=== PATIENT | female | born 1955 | race Caucasian/White ===

== ENCOUNTER 2018-12-28 22:20 | Inpatient (IN) ==
[2018-12-28] MEDS ORDERED: 0.9 % Sodium Chloride 500 ML IVC ONE (22:34)
[2018-12-28 23:07] LABS: Basophils % 0.5 %; Eosinophils % 0.8 %; Hematocrit 29.4 % (35.3-44.9); Hemoglobin 10.6 g/dL (11.5-15.4); Immature Granulocytes % 0.3 % (0-4); Lymphocytes # 0.5 K/mcL (0.6-4.6); Lymphocytes % 14.2 %; Mean Corpuscular HGB Conc 36.1 g/dL (31.6-35.5); Mean Corpuscular Hemoglobin 31.5 pg (28.0-33.3); Mean Corpuscular Volume 87.2 fL (83.0-100.0); Mean Platelet Volume 8.1 fL (9.4-12.4); Monocytes # 0.6 K/mcL (0.0-1.3); Monocytes % 16.9 %; Neutrophils # 2.5 K/mcL (1.6-8.9); Platelet Count 281 K/mcL (140-400); Red Blood Count 3.37 M/mcL (3.82-4.97); Red Cell Distribution Width 17.2 % (11.5-14.5); Segmented Neutrophils % 67.3 %
[2018-12-28 23:28] LABS: Alanine Aminotransferase 8 Units/L (7-52); Albumin 3.3 g/dL (3.5-5.7); Albumin/Globulin Ratio 1.2 (1.1-2.2); Alkaline Phosphatase 79 Units/L (34-104); Aspartate Amino Transferase 15 Units/L (13-39); BUN/Creatinine Ratio 19 (6-26); Bilirubin,Direct 0.3 mg/dL (0.0-0.2); Bilirubin,Indirect 0.8 mg/dL (0.0-1.2); Bilirubin,Total 1.1 mg/dL (0.3-1.0); Blood Urea Nitrogen 6 mg/dL (8-23); Calcium 8.6 mg/dL (8.6-10.3); Carbon Dioxide 19 mEq/L (23-29); Chloride 91 mEq/L (98-107); Globulin 2.7 g/dL (2.4-3.5); Glucose 87 mg/dL (70-105); Magnesium 1.3 mg/dL (1.6-2.6); Osmolality,Calculated 251 (280-300); Phosphorous 2.5 mg/dL (2.7-4.5); Potassium 2.8 mEq/L (3.5-5.1); Sodium 122 mEq/L (136-145); eGFR For Non-African Americans > 60 (> 60)
[2018-12-29 00:42] LABS: Troponin I < 0.03 ng/mL (< 0.04)
--- NOTE | 2018-12-29 00:42 | Emergency Department Note ---
Disposition Clinical Impression: Hyponatremia Altered mental status Qualifiers: Altered mental status type: transient alteration of awareness Qualified Code(s): R40.4 - Transient alteration of awareness Disposition: Admitted As Inpatient Condition: Fair Time of Disposition: 04:21 General Adult HPI - General Chief complaint: ED Altered Mental Status Stated complaint: General sickness Time Seen by Provider: 12/28/18 22:31 Source: EMS Mode of arrival: EMS Limitations: altered mental status Nursing Notes Reviewed: Yes Vital Signs Reviewed: Yes - History of Present Illness HPI Narrative: Patient is a 63-year-old female with lung cancer currently undergoing chemotherapy and radiation treatments, with her last radiation treatment this past Saturday. Patient has a recent history of hyponatremia, patient gave up alcohol in September 2018. She is coming in this evening for increasing confusion, not eating or drinking, and increasing weakness with increased difficulty breathing. Daughter is at bedside state that patient begins to behave like she is now whenever her sodium is low, and they were concerned that this may be the case tonight so they brought her in to be evaluated. Patient is denying fevers or chills, chest pain, abdominal pain, nausea or vomiting, diarrhea or constipation, numbness or tingling, dizziness or lightheadedness. EMS reports patient had a fever of 101.2 Fahrenheit, but on arrival patient's temperature was 99.2 taken orally. Pain Scale: 0 - Related Data Home Medications Medication Instructions Recorded Confirmed Albuterol Sulfate [Ventolin Hfa] 2 puff IH Q6H PRN 09/10/18 12/18/18 Mirabegron [Myrbetriq] 50 mg PO DAILY 10/30/18 12/18/18 OxyCODONE/APAP 5/325 [Percocet 1 each PO Q4HR PRN 10/30/18 12/18/18 5/325 MG] Potassium Chloride [K-Tab ER] 10 meq PO BID 10/30/18 12/18/18 diazePAM [Valium] 10 mg PO ONCE PRN 10/30/18 12/18/18 Previous Rx's Medication Instructions Recorded Acetaminophen [Tylenol] 650 mg PO Q6HR PRN tablet 09/19/18 Budesonide/Formoterol 160/4.5 2 puff IH BIDR inh 09/19/18 [Symbicort 160/4.5] Folic Acid 1 mg PO DAILY tablet 09/19/18 Megestrol Acetate [Megace] 40 mg PO DAILY tablet 09/19/18 Thiamine (B-1) [Vitamin B-1] 100 mg PO DAILY tablet 09/19/18 Loperamide [Imodium] 2 mg PO AD PRN #30 capsule 11/13/18 Magic Mouthwash 5 ml PO Q4HR #240 ml 11/13/18 Ondansetron ODT [Zofran ODT] 4 mg SL Q6HR #20 tab.rapdis 11/13/18 Prochlorperazine Maleate 10 mg PO Q6HR PRN #30 tablet 11/13/18 [Compazine] Docusate Sodium [Colace] 100 mg PO BID #60 capsule 11/20/18 Lidocaine/Prilocaine [Emla] 1 appl TP AD #30 gm 11/20/18 Polyethylene Glycol 3350 [MiraLAX] 17 gm PO DAILY #30 powd.pack 11/20/18 predniSONE [Prednisone] 10 mg PO DAILY #21 tab.ds.pk 11/27/18 Sodium Chloride [Sodium Chloride 1 gm PO TID 30 Days #90 tablet 12/08/18 Tab] Demeclocycline HCl 300 mg PO BID #20 tablet 12/18/18 Allergies Allergy/AdvReac Type Severity Reaction Status Date / Time baclofen AdvReac See Verified 12/18/18 08:56 Comments morphine AdvReac Itching Verified 12/18/18 08:56 All systems ED: reviewed and negative except as stated. Constitutional: Denies: fever, chills ENT ED: Denies: throat pain Cardiovascular: Denies: chest pain, palpitations Respiratory: Reports: cough (increasing sputum production), wheezes. Denies: dyspnea Gastrointestinal: Denies: abdominal pain, nausea, vomiting, diarrhea, constipation Genitourinary: Denies: urgency, dysuria Musculoskeletal: Reports: back pain (chronic) Neurological: Denies: headache, weakness Psychiatric: Denies: anxiety, depression Endocrine: Denies: fatigue, heat or cold intolerance Hematological/Lymphatic: Denies: easy bleeding, easy bruising Allergic/Immunologic: Denies: facial swelling, urticaria Past Medical History - Past Medical History Medical history: Reports: arthritis, hypertension, other Surgical history: Reports: colectomy, herniorrhaphy Psychiatric history: Reports: anxiety, depression - Social History Smoking Status: Current every day smoker Smokeless Tobacco Status: No Alcohol use: Reports: heavy, recent Drug use: Reports: none Physical Exam - General Limitations: altered mental status General appearance: alert - Head Head exam: atraumatic, normocephalic - Eye Eye exam: Present: normal appearance, PERRL, EOMI - ENT ENT exam: mucous membranes dry - Neck Neck exam: Present: normal inspection, full ROM - Chest Chest inspection: Present: normal inspection, symmetric chest wall rise. Absent: tenderness - Respiratory Respiratory exam: Present: other (transmitted upper airway sounds, prolonged expiratory phase, diffuse wheezing) - Cardiovascular Cardiovascular exam: Present: tachycardia - Abdominal Exam Abdominal exam: Present: soft, Non-Tender - Extremities Exam Extremities exam: Present: normal inspection, full ROM - Back Exam Back exam: Present: normal inspection, full ROM - Neurological Exam Neurological exam: Present: alert, oriented X3 (pt oriented to person, place, time, president) - Psychiatric Psychiatric exam: Present: normal affect, normal mood - Skin Skin exam: Present: warm, dry, intact Course Course Narrative: Will check electrolytes, get CXR, EKG, blood cultures. Suspect pt will be admitted. Vital Signs Temperature 99.6 F 12/28/18 22:24 Pulse Rate 100 12/28/18 22:24 Respiratory Rate 18 12/28/18 22:24 Blood Pressure 116/75 12/28/18 22:24 O2 Sat by Pulse Oximetry 99 12/28/18 22:24 Temperature 99.6 F 12/28/18 22:24 Pulse Rate 103 12/29/18 01:38 Respiratory Rate 20 12/29/18 01:38 Blood Pressure 118/80 12/29/18 01:38 O2 Sat by Pulse Oximetry 98 12/29/18 01:38 Oxygen Delivery Oxygen Delivery Room Air Medical Decision Making - MDM Narrative Medical decision making narrative: Pts lab work revealed hyponatremia, hypomagnesemia, hypophosphatemia. Pt was given potassium, phosphorous, sodium while in the ED. Pt has a hx of hyponatremia, but etiology in the past was due to alcohol abuse and pt has been abstinent since Sep 2018. Pts mental status was waxing and waning while in the department and was at times A&Ox3, and at other times was only aware of self. Pt was admitted to hospitalist service through Dr. Liang, who was covering for Dr. Petersen. Pt and family at bedside verbalized understanding and agreement with the plan. Pt and family were given an opportunity to ask questions and all of their concerns were adddressed. Pt remained stable while int he department. - Medical Records Medical records reviewed: Yes I reviewed the patient's medical records. - Lab Data Lab results reviewed: Yes I reviewed the patient's lab results. Result diagrams: 12/28/18 22:52 12/28/18 22:52 Lab Results 12/28/18 12/28/18 12/28/18 Range/Units 22:52 22:52 22:52 WBC 3.7 L (4.3-11.1) K/mcL RBC 3.37 L (3.82-4.97) M/mcL Hgb 10.6 L (11.5-15.4) g/dL Hct 29.4 L (35.3-44.9) % MCV 87.2 (83.0-100.0) fL MCH 31.5 (28.0-33.3) pg MCHC 36.1 H (31.6-35.5) g/dL RDW 17.2 H (11.5-14.5) % Plt Count 281 (140-400) K/mcL MPV 8.1 L (9.4-12.4) fL Immature Gran % 0.3 (0-4) % Seg Neutrophils % 67.3 % Lymphocytes % 14.2 % Monocytes % 16.9 % Eosinophils % 0.8 % Basophils % 0.5 % Neutrophils # 2.5 (1.6-8.9) K/mcL Lymphocytes # 0.5 L (0.6-4.6) K/mcL Monocytes # 0.6 (0.0-1.3) K/mcL Eosinophils # 0.0 (0.0-0.6) K/mcL Basophils # 0.0 (0.0-0.2) K/mcL Sodium 122 L (136-145) mEq/L Potassium 2.8 L (3.5-5.1) mEq/L Chloride 91 L (98-107) mEq/L Carbon Dioxide 19 L (23-29) mEq/L BUN 6 L (8-23) mg/dL Creatinine 0.32 L (0.60-1.20) mg/dL Est GFR ( Amer) > 60 (> 60) Est GFR (Non-Af Amer) > 60 (> 60) BUN/Creatinine Ratio 19 (6-26) Glucose 87 (70-105) mg/dL Calculated Osmolality 251 L (280-300) Lactic Acid 0.8 (0.5-2.2) mmol/L Calcium 8.6 (8.6-10.3) mg/dL Phosphorus 2.5 L (2.7-4.5) mg/dL Magnesium 1.3 L (1.6-2.6) mg/dL Total Bilirubin 1.1 H (0.3-1.0) mg/dL Direct Bilirubin 0.3 H (0.0-0.2) mg/dL Indirect Bilirubin 0.8 (0.0-1.2) mg/dL AST 15 (13-39) Units/L ALT 8 (7-52) Units/L Alkaline Phosphatase 79 (34-104) Units/L Troponin I < 0.03 (< 0.04) ng/mL Serum Total Protein 6.0 L (6.4-8.9) g/dL Albumin 3.3 L (3.5-5.7) g/dL Globulin 2.7 (2.4-3.5) g/dL Albumin/Globulin Ratio 1.2 (1.1-2.2) Urine Color (Yellow) Urine Clarity (Clear) Urine pH (5.0-8.0) pH Units Ur Specific [place] (1.010-1.025) Urine Protein (Neg-Trace) mg/dL Urine Glucose (UA) (Normal) mg/dL Urine Ketones (Negative) mg/dL Urine Blood (Negative) Urine Nitrite (Negative) Urine Bilirubin (Negative) Urine Urobilinogen (Normal) mg/dL Ur Leukocyte Esterase (Negative) Ur Culture Indicated? (NO) 12/29/18 Range/Units 00:50 WBC (4.3-11.1) K/mcL RBC (3.82-4.97) M/mcL Hgb (11.5-15.4) g/dL Hct (35.3-44.9) % MCV (83.0-100.0) fL MCH (28.0-33.3) pg MCHC (31.6-35.5) g/dL RDW (11.5-14.5) % Plt Count (140-400) K/mcL MPV (9.4-12.4) fL Immature Gran % (0-4) % Seg Neutrophils % % Lymphocytes % % Monocytes % % Eosinophils % % Basophils % % Neutrophils # (1.6-8.9) K/mcL Lymphocytes # (0.6-4.6) K/mcL Monocytes # (0.0-1.3) K/mcL Eosinophils # (0.0-0.6) K/mcL Basophils # (0.0-0.2) K/mcL Sodium (136-145) mEq/L Potassium (3.5-5.1) mEq/L Chloride (98-107) mEq/L Carbon Dioxide (23-29) mEq/L BUN (8-23) mg/dL Creatinine (0.60-1.20) mg/dL Est GFR ( Amer) (> 60) Est GFR (Non-Af Amer) (> 60) BUN/Creatinine Ratio (6-26) Glucose (70-105) mg/dL Calculated Osmolality (280-300) Lactic Acid (0.5-2.2) mmol/L Calcium (8.6-10.3) mg/dL Phosphorus (2.7-4.5) mg/dL Magnesium (1.6-2.6) mg/dL Total Bilirubin (0.3-1.0) mg/dL Direct Bilirubin (0.0-0.2) mg/dL Indirect Bilirubin (0.0-1.2) mg/dL AST (13-39) Units/L ALT (7-52) Units/L Alkaline Phosphatase (34-104) Units/L Troponin I (< 0.04) ng/mL Serum Total Protein (6.4-8.9) g/dL Albumin (3.5-5.7) g/dL Globulin (2.4-3.5) g/dL Albumin/Globulin Ratio (1.1-2.2) Urine Color Dark Yellow (Yellow) Urine Clarity Clear (Clear) Urine pH 6.0 (5.0-8.0) pH Units Ur Specific [place] 1.016 (1.010-1.025) Urine Protein Negative (Neg-Trace) mg/dL Urine Glucose (UA) Normal (Normal) mg/dL Urine Ketones 40 H (Negative) mg/dL Urine Blood Negative (Negative) Urine Nitrite Negative (Negative) Urine Bilirubin Small H (Negative) Urine Urobilinogen Normal (Normal) mg/dL Ur Leukocyte Esterase Negative (Negative) Ur Culture Indicated? NO (NO) - Radiology Data Radiology results reviewed: Yes I reviewed the patient's radiology results. Chest X-Ray 12/28/18 22:32 IMPRESSION: No acute disease. D/ / Kendrick Wright MD / Kendrick Wright MD Interpreting Provider: Kendrick Wright MD - EKG Data EKG #1 EKG attestation: Yes I reviewed and interpreted this EKG. EKG results narrative: HR 103, rhythm irregular sinus tachycardia with PACs, axis normal. [place] 159, QRS 80, QTc 487. No evidence of ST elevation or depression.
[2018-12-29] MEDS ORDERED: Potassium Phosphate 44 MEQ in 0.9 % Sodium Chloride 250 ML IVPB ONE (00:47)
[2018-12-29 01:00] LABS: Bilirubin,Urine Small (Negative); Blood,Urine Negative (Negative); Clarity,Urine Clear (Clear); Color,Urine Dark Yellow (Yellow); Glucose,Urine (UA) Normal (Normal); Ketones,Urine 40 mg/dL (Negative); Leukocyte Esterase,Urine Negative (Negative); Nitrite,Urine Negative (Negative); Protein,Urine Negative (Neg-Trace); Specific Gravity,Urine 1.016 (1.010-1.025); Urobilinogen,Urine Normal (Normal)
[2018-12-29] MEDS ORDERED: 0.9 % Sodium Chloride 1,000 ML IVC SCH ×2 (01:00→08:15)
--- NOTE | 2018-12-29 03:41 | Emergency Department Note ---
Disposition Clinical Impression: Hyponatremia Altered mental status Qualifiers: Altered mental status type: transient alteration of awareness Qualified Code(s): R40.4 - Transient alteration of awareness Disposition: Admitted As Inpatient Condition: Fair General Adult HPI - General Chief complaint: ED Altered Mental Status Stated complaint: General sickness Time Seen by Provider: 12/28/18 22:31 Source: EMS Mode of arrival: EMS Limitations: altered mental status Nursing Notes Reviewed: Yes Vital Signs Reviewed: Yes - History of Present Illness Pain Scale: 0 - Related Data Home Medications Medication Instructions Recorded Confirmed Albuterol Sulfate [Ventolin Hfa] 2 puff IH Q6H PRN 09/10/18 12/18/18 Mirabegron [Myrbetriq] 50 mg PO DAILY 10/30/18 12/18/18 OxyCODONE/APAP 5/325 [Percocet 1 each PO Q4HR PRN 10/30/18 12/18/18 5/325 MG] Potassium Chloride [K-Tab ER] 10 meq PO BID 10/30/18 12/18/18 diazePAM [Valium] 10 mg PO ONCE PRN 10/30/18 12/18/18 Previous Rx's Medication Instructions Recorded Acetaminophen [Tylenol] 650 mg PO Q6HR PRN tablet 09/19/18 Budesonide/Formoterol 160/4.5 2 puff IH BIDR inh 09/19/18 [Symbicort 160/4.5] Folic Acid 1 mg PO DAILY tablet 09/19/18 Megestrol Acetate [Megace] 40 mg PO DAILY tablet 09/19/18 Thiamine (B-1) [Vitamin B-1] 100 mg PO DAILY tablet 09/19/18 Loperamide [Imodium] 2 mg PO AD PRN #30 capsule 11/13/18 Magic Mouthwash 5 ml PO Q4HR #240 ml 11/13/18 Ondansetron ODT [Zofran ODT] 4 mg SL Q6HR #20 tab.rapdis 11/13/18 Prochlorperazine Maleate 10 mg PO Q6HR PRN #30 tablet 11/13/18 [Compazine] Docusate Sodium [Colace] 100 mg PO BID #60 capsule 11/20/18 Lidocaine/Prilocaine [Emla] 1 appl TP AD #30 gm 11/20/18 Polyethylene Glycol 3350 [MiraLAX] 17 gm PO DAILY #30 powd.pack 11/20/18 predniSONE [Prednisone] 10 mg PO DAILY #21 tab.ds.pk 11/27/18 Sodium Chloride [Sodium Chloride 1 gm PO TID 30 Days #90 tablet 12/08/18 Tab] Demeclocycline HCl 300 mg PO BID #20 tablet 12/18/18 Allergies Allergy/AdvReac Type Severity Reaction Status Date / Time baclofen AdvReac See Verified 12/18/18 08:56 Comments morphine AdvReac Itching Verified 12/18/18 08:56 Constitutional: Denies: fever, chills ENT ED: Denies: throat pain Cardiovascular: Denies: chest pain, palpitations Respiratory: Reports: cough (increasing sputum production), wheezes. Denies: dyspnea Gastrointestinal: Denies: abdominal pain, nausea, vomiting, diarrhea, constipation Genitourinary: Denies: urgency, dysuria Musculoskeletal: Reports: back pain (chronic) Neurological: Denies: headache, weakness Psychiatric: Denies: anxiety, depression Endocrine: Denies: fatigue, heat or cold intolerance Hematological/Lymphatic: Denies: easy bleeding, easy bruising Allergic/Immunologic: Denies: facial swelling, urticaria Past Medical History - Past Medical History Medical history: Reports: arthritis, hypertension, other Surgical history: Reports: colectomy, herniorrhaphy Psychiatric history: Reports: anxiety, depression - Social History Smoking Status: Current every day smoker Smokeless Tobacco Status: No Alcohol use: Reports: heavy, recent Drug use: Reports: none Physical Exam - General Limitations: altered mental status General appearance: alert Course Vital Signs Temperature 99.6 F 12/28/18 22:24 Pulse Rate 100 12/28/18 22:24 Respiratory Rate 18 12/28/18 22:24 Blood Pressure 116/75 12/28/18 22:24 O2 Sat by Pulse Oximetry 99 12/28/18 22:24 Temperature 98.9 F 12/29/18 07:53 Pulse Rate 103 12/29/18 07:53 Respiratory Rate 16 12/29/18 07:53 Blood Pressure 123/73 12/29/18 07:53 O2 Sat by Pulse Oximetry 98 12/29/18 07:53 Oxygen Delivery Oxygen Delivery Room Air Medical Decision Making - Medical Records Medical records reviewed: Yes I reviewed the patient's medical records. - Lab Data Lab results reviewed: Yes I reviewed the patient's lab results. Result diagrams: 12/28/18 22:52 12/29/18 04:57 Lab Results 12/28/18 12/28/18 12/28/18 Range/Units 22:36 22:52 22:52 WBC 3.7 L (4.3-11.1) K/mcL RBC 3.37 L (3.82-4.97) M/mcL Hgb 10.6 L (11.5-15.4) g/dL Hct 29.4 L (35.3-44.9) % MCV 87.2 (83.0-100.0) fL MCH 31.5 (28.0-33.3) pg MCHC 36.1 H (31.6-35.5) g/dL RDW 17.2 H (11.5-14.5) % Plt Count 281 (140-400) K/mcL MPV 8.1 L (9.4-12.4) fL Immature Gran % 0.3 (0-4) % Seg Neutrophils % 67.3 % Lymphocytes % 14.2 % Monocytes % 16.9 % Eosinophils % 0.8 % Basophils % 0.5 % Neutrophils # 2.5 (1.6-8.9) K/mcL Lymphocytes # 0.5 L (0.6-4.6) K/mcL Monocytes # 0.6 (0.0-1.3) K/mcL Eosinophils # 0.0 (0.0-0.6) K/mcL Basophils # 0.0 (0.0-0.2) K/mcL Sodium 122 L (136-145) mEq/L Potassium 2.8 L (3.5-5.1) mEq/L Chloride 91 L (98-107) mEq/L Carbon Dioxide 19 L (23-29) mEq/L BUN 6 L (8-23) mg/dL Creatinine 0.32 L (0.60-1.20) mg/dL Est GFR ( Amer) > 60 (> 60) Est GFR (Non-Af Amer) > 60 (> 60) BUN/Creatinine Ratio 19 (6-26) Glucose 87 (70-105) mg/dL POC Glucose 87 (70-99) mg/dL Calculated Osmolality 251 L (280-300) Lactic Acid (0.5-2.2) mmol/L Calcium 8.6 (8.6-10.3) mg/dL Phosphorus 2.5 L (2.7-4.5) mg/dL Magnesium 1.3 L (1.6-2.6) mg/dL Total Bilirubin 1.1 H (0.3-1.0) mg/dL Direct Bilirubin 0.3 H (0.0-0.2) mg/dL Indirect Bilirubin 0.8 (0.0-1.2) mg/dL AST 15 (13-39) Units/L ALT 8 (7-52) Units/L Alkaline Phosphatase 79 (34-104) Units/L Troponin I < 0.03 (< 0.04) ng/mL Serum Total Protein 6.0 L (6.4-8.9) g/dL Albumin 3.3 L (3.5-5.7) g/dL Globulin 2.7 (2.4-3.5) g/dL Albumin/Globulin Ratio 1.2 (1.1-2.2) Urine Color (Yellow) Urine Clarity (Clear) Urine pH (5.0-8.0) pH Units Ur Specific [place] (1.010-1.025) Urine Protein (Neg-Trace) mg/dL Urine Glucose (UA) (Normal) mg/dL Urine Ketones (Negative) mg/dL Urine Blood (Negative) Urine Nitrite (Negative) Urine Bilirubin (Negative) Urine Urobilinogen (Normal) mg/dL Ur Leukocyte Esterase (Negative) Ur Culture Indicated? (NO) Urine Osmolality (300-1090) mOsm/kg Urine Creatinine mg/dL Urine Sodium mEq/L 12/28/18 12/29/18 12/29/18 Range/Units 22:52 00:50 04:57 WBC (4.3-11.1) K/mcL RBC (3.82-4.97) M/mcL Hgb (11.5-15.4) g/dL Hct (35.3-44.9) % MCV (83.0-100.0) fL MCH (28.0-33.3) pg MCHC (31.6-35.5) g/dL RDW (11.5-14.5) % Plt Count (140-400) K/mcL MPV (9.4-12.4) fL Immature Gran % (0-4) % Seg Neutrophils % % Lymphocytes % % Monocytes % % Eosinophils % % Basophils % % Neutrophils # (1.6-8.9) K/mcL Lymphocytes # (0.6-4.6) K/mcL Monocytes # (0.0-1.3) K/mcL Eosinophils # (0.0-0.6) K/mcL Basophils # (0.0-0.2) K/mcL Sodium 123 L (136-145) mEq/L Potassium 3.1 L (3.5-5.1) mEq/L Chloride 92 L (98-107) mEq/L Carbon Dioxide 20 L (23-29) mEq/L BUN 5 L (8-23) mg/dL Creatinine 0.37 L (0.60-1.20) mg/dL Est GFR ( Amer) > 60 (> 60) Est GFR (Non-Af Amer) > 60 (> 60) BUN/Creatinine Ratio 14 (6-26) Glucose 90 (70-105) mg/dL POC Glucose (70-99) mg/dL Calculated Osmolality 253 L (280-300) Lactic Acid 0.8 (0.5-2.2) mmol/L Calcium 8.4 L (8.6-10.3) mg/dL Phosphorus (2.7-4.5) mg/dL Magnesium (1.6-2.6) mg/dL Total Bilirubin (0.3-1.0) mg/dL Direct Bilirubin (0.0-0.2) mg/dL Indirect Bilirubin (0.0-1.2) mg/dL AST (13-39) Units/L ALT (7-52) Units/L Alkaline Phosphatase (34-104) Units/L Troponin I (< 0.04) ng/mL Serum Total Protein (6.4-8.9) g/dL Albumin (3.5-5.7) g/dL Globulin (2.4-3.5) g/dL Albumin/Globulin Ratio (1.1-2.2) Urine Color Dark Yellow (Yellow) Urine Clarity Clear (Clear) Urine pH 6.0 (5.0-8.0) pH Units Ur Specific [place] 1.016 (1.010-1.025) Urine Protein Negative (Neg-Trace) mg/dL Urine Glucose (UA) Normal (Normal) mg/dL Urine Ketones 40 H (Negative) mg/dL Urine Blood Negative (Negative) Urine Nitrite Negative (Negative) Urine Bilirubin Small H (Negative) Urine Urobilinogen Normal (Normal) mg/dL Ur Leukocyte Esterase Negative (Negative) Ur Culture Indicated? NO (NO) Urine Osmolality (300-1090) mOsm/kg Urine Creatinine mg/dL Urine Sodium mEq/L 12/29/18 12/29/18 Range/Units 05:06 05:06 WBC (4.3-11.1) K/mcL RBC (3.82-4.97) M/mcL Hgb (11.5-15.4) g/dL Hct (35.3-44.9) % MCV (83.0-100.0) fL MCH (28.0-33.3) pg MCHC (31.6-35.5) g/dL RDW (11.5-14.5) % Plt Count (140-400) K/mcL MPV (9.4-12.4) fL Immature Gran % (0-4) % Seg Neutrophils % % Lymphocytes % % Monocytes % % Eosinophils % % Basophils % % Neutrophils # (1.6-8.9) K/mcL Lymphocytes # (0.6-4.6) K/mcL Monocytes # (0.0-1.3) K/mcL Eosinophils # (0.0-0.6) K/mcL Basophils # (0.0-0.2) K/mcL Sodium (136-145) mEq/L Potassium (3.5-5.1) mEq/L Chloride (98-107) mEq/L Carbon Dioxide (23-29) mEq/L BUN (8-23) mg/dL Creatinine (0.60-1.20) mg/dL Est GFR ( Amer) (> 60) Est GFR (Non-Af Amer) (> 60) BUN/Creatinine Ratio (6-26) Glucose (70-105) mg/dL POC Glucose (70-99) mg/dL Calculated Osmolality (280-300) Lactic Acid (0.5-2.2) mmol/L Calcium (8.6-10.3) mg/dL Phosphorus (2.7-4.5) mg/dL Magnesium (1.6-2.6) mg/dL Total Bilirubin (0.3-1.0) mg/dL Direct Bilirubin (0.0-0.2) mg/dL Indirect Bilirubin (0.0-1.2) mg/dL AST (13-39) Units/L ALT (7-52) Units/L Alkaline Phosphatase (34-104) Units/L Troponin I (< 0.04) ng/mL Serum Total Protein (6.4-8.9) g/dL Albumin (3.5-5.7) g/dL Globulin (2.4-3.5) g/dL Albumin/Globulin Ratio (1.1-2.2) Urine Color (Yellow) Urine Clarity (Clear) Urine pH (5.0-8.0) pH Units Ur Specific [place] (1.010-1.025) Urine Protein (Neg-Trace) mg/dL Urine Glucose (UA) (Normal) mg/dL Urine Ketones (Negative) mg/dL Urine Blood (Negative) Urine Nitrite (Negative) Urine Bilirubin (Negative) Urine Urobilinogen (Normal) mg/dL Ur Leukocyte Esterase (Negative) Ur Culture Indicated? (NO) Urine Osmolality 681 (300-1090) mOsm/kg Urine Creatinine 120 mg/dL Urine Sodium 132.8 mEq/L - Radiology Data Radiology results reviewed: Yes I reviewed the patient's radiology results. Chest X-Ray 12/28/18 22:32 IMPRESSION: No acute disease. D/ / Kendrick Wright MD / Kendrick Wright MD Interpreting Provider: Kendrick Wright MD Critical Care Time Critical Care Time: No Attestation Statement - Attestation Attestation: I, Andrew Villanueva MD, personally evaluated this patient and discussed their management with the resident physician. I reviewed the resident's note and agree with the documented findings, medical decision making, and plan of care. 63-year-old female with history of lung cancer who had her last radiation rodger tment 2 days ago presents to the emergency department with family complaining of increased and lies weakness over the past 2 days. Also increased confusion. They report that today she was unable to ambulate. She has been in bed and has been moaning which is not normal for her. Daughters report that she does have a history of hyponatremia and she gets these symptoms whenever her sodium gets low . There has been some cough. No increased shortness of breath. She has been complaining of some burning mid chest pain from her throat down to her stomach which they felt was due to her radiation. On examination patient is a well-developed well-nourished female in no acute distress. She is alert and oriented. No cyanosis or diaphoresis. Breath sounds are clear and equal bilaterally. Heart regular rate and rhythm. Abdomen soft and nontender with normal bowel sounds. Labs reviewed. Chest x-ray negative. The hospitalist, Dr. Liang, was consulted and accepted admission of the patient.
[2018-12-29 05:33] LABS: BUN/Creatinine Ratio 14 (6-26); Blood Urea Nitrogen 5 mg/dL (8-23); Calcium 8.4 mg/dL (8.6-10.3); Carbon Dioxide 20 mEq/L (23-29); Chloride 92 mEq/L (98-107); Glucose 90 mg/dL (70-105); Osmolality,Calculated 253 (280-300); Potassium 3.1 mEq/L (3.5-5.1); Sodium 123 mEq/L (136-145); eGFR For Non-African Americans > 60 (> 60)
[2018-12-29 05:33] LABS: Sodium, Urine 132.8 mEq/L
[2018-12-29] MEDS ORDERED: Naloxone 0.4 MG/ML INJ IVP PRN (08:04)
[2018-12-29] MEDS ORDERED: Ondansetron 4 MG/2 ML VIAL IVP PRN (08:04)
[2018-12-29] MEDS ORDERED: Ipratropium/Albuterol Neb 3 ML IH PRN (08:09)
[2018-12-29] MEDS ORDERED: GI Cocktail 40 ML EACH PO ONE (09:36)
--- NOTE | 2018-12-29 09:39 | Internal Med History&Physical ---
Date of Encounter: 12/29/18 Time of Encounter: 08:45 Internal Medicine - H&P: HPI Chief complaint: change in mental status Admitted From: Home Plans for Post Hospital Care: Home History of present illness: Ms. Carranza is a 63 year old female with PMH of lung ca (stage III squamous cell carcinoma) currently on chemotherapy and radiation, chronic hyponatremia, alcohol abuse who presents to the ER for change in mental status. ER workup was positive for hyponatremia, hypokalemia, and hypomagnesmia. Pt seen and examined at bedside. Pt is sitting in bed and currently oriented to self and place. No family was available during the time of my evaluation due to which information was obtained from medical records. Pt did complain of severe burning in her chest after having orange juice this morning. She reported of constant burning down her esophagus every time she eats which has decreased her oral intake significantly. Pt is currently undergoing radiation therapy. As per records, pt's baseline mental status is AAO x 3. She denies any headache, shortness of breath, abd pain,n/v, fever, or chills. She states that her family thought she was confused which is what prompted her visit to the ER. Ten point ROS is negative except as listed above Past Med Surg Social Fam HX - Past Medical History Medical history: arthritis, hypertension, other Additional medical history: lung cancer Psychiatric history: anxiety, depression - Past Surgical History Surgical History: colectomy, herniorrhaphy Additional surgical history: Total shoulder right,ORIF left distal radius - Social History Smoking Status: Current every day smoker Smokeless Tobacco Status: No Alcohol use: heavy, recent Drug use: none - Family History Father Living Status: Hx Family Cardiac Disorders: Yes Internal Medicine - H&P: Meds Albuterol Sulfate [Ventolin Hfa] 2 puff IH Q6H PRN 09/10/18 [History] Acetaminophen [Tylenol] 650 mg PO Q6HR PRN tablet 09/19/18 [Rx] Folic Acid 1 mg PO DAILY tablet 09/19/18 [Rx] Thiamine (B-1) [Vitamin B-1] 100 mg PO DAILY tablet 09/19/18 [Rx] Mirabegron [Myrbetriq] 50 mg PO HS 10/30/18 [History] OxyCODONE/APAP 5/325 [Percocet 5/325 MG] 1 each PO Q4HR PRN 10/30/18 [History] Potassium Chloride [K-Tab ER] 10 meq PO BID 10/30/18 [History] Magic Mouthwash 5 ml PO Q4HR #240 ml 11/13/18 [Rx] Ondansetron ODT [Zofran ODT] 4 mg SL Q6HR #20 tab.rapdis 11/13/18 [Rx] Docusate Sodium [Colace] 100 mg PO BID #60 capsule 11/20/18 [Rx] Demeclocycline HCl 300 mg PO BID #20 tablet 12/18/18 [Rx] Bupropion HCl [Wellbutrin Xl] 300 mg PO DAILY 12/29/18 [History] Dexlansoprazole [Dexilant] 60 mg PO DAILY 12/29/18 [History] Fluticasone/Vilanterol [Breo Ellipta 200-25 Mcg INH] 1 each IH DAILY PRN 12/29/18 [History] Ibuprofen [Ibu-200] 200 mg PO Q4H PRN 12/29/18 [History] Lidocaine/Prilocaine [Emla] 1 appl TP AD PRN 12/29/18 [History] Megestrol Acetate [Megace] 40 mg PO BID 12/29/18 [History] Polyethylene Glycol 3350 [MiraLAX] 17 gm PO DAILY PRN 12/29/18 [History] Sodium Chloride [Sodium Chloride Tab] 1 gm PO BID 12/29/18 [History] diazePAM [Valium] 5 mg PO HS PRN 12/29/18 [History] Allergy/AdvReac Type Severity Reaction Status Date / Time baclofen AdvReac See Verified 12/18/18 08:56 Comments morphine AdvReac Itching Verified 12/18/18 08:56 oxybutynin [From Ditropan] AdvReac Confusion Verified 12/29/18 14:53 All Systems PM: A 10-system review of systems was performed and is negative for pertinent fi ndings except as documented above in the HPI. Review of systems: Ten point ROS is negative except as listed in HPI - Constitutional Vitals: Temp Pulse Resp BP Pulse Ox 98.9 F 103 16 123/73 98 12/29/18 07:53 12/29/18 07:53 12/29/18 07:53 12/29/18 07:53 12/29/18 07:53 Exam: General: No acute distress, AAO x 2, frail appearing elderly female HEENT: EOMI, NC/AT, no scleral icterus, poor oral hygiene Respiratory: Clear to auscultate bilaterally, no wheezing, no rales Cardiovascular: Regular, Rate, Rhythm, No murmurs, No JVD GI: Soft, Non tender, non distended, normal bowel sounds Ext: No edema, no tenderness, positive pulses Skin: Chronic venous stasis in bilateral LE Neuro: AAO x 2, no focal deficits Internal Med - H&P Results - Labs CBC & Chem 7: 12/28/18 22:52 12/29/18 08:25 Labs: Short CBC 12/28/18 Range/Units 22:52 WBC 3.7 L (4.3-11.1) K/mcL Hgb 10.6 L (11.5-15.4) g/dL Hct 29.4 L (35.3-44.9) % Plt Count 281 (140-400) K/mcL Neutrophils # 2.5 (1.6-8.9) K/mcL BMP 12/28/18 12/29/18 22:52 04:57 Sodium 122 L 123 L Potassium 2.8 L 3.1 L Chloride 91 L 92 L Carbon Dioxide 19 L 20 L BUN 6 L 5 L Creatinine 0.32 L 0.37 L Glucose 87 90 Calcium 8.6 8.4 L Cardiac Enzymes 12/28/18 Range/Units 22:52 Troponin I < 0.03 (< 0.04) ng/mL Liver Function 12/28/18 Range/Units 22:52 Total Bilirubin 1.1 H (0.3-1.0) mg/dL Direct Bilirubin 0.3 H (0.0-0.2) mg/dL AST 15 (13-39) Units/L ALT 8 (7-52) Units/L Alkaline Phosphatase 79 (34-104) Units/L Albumin 3.3 L (3.5-5.7) g/dL Urine 12/29/18 Range/Units 00:50 Urine Color Dark Yellow (Yellow) Urine Clarity Clear (Clear) Urine pH 6.0 (5.0-8.0) pH Units Ur Specific [place] 1.016 (1.010-1.025) Urine Protein Negative (Neg-Trace) mg/dL Urine Glucose (UA) Normal (Normal) mg/dL - Impressions ITS Impressions Chest X-Ray 12/28/18 22:32 IMPRESSION: No acute disease. D/ / Kendrick Wright MD / Kendrick Wright MD Interpreting Provider: Kendrick Wright MD - Summary of Assessment and Plan Summary of Assessment and Plan: Pt is a 63y/o female with PMH Of squamous cell carcinoma of lung currently undergoing chemotherapy and radiation, chronic hyponatremia, alcohol abuse, and hypertension who is admitted for acute change in mental status. 1. Acute change in mental status Likely secondary to metabolic derangements will correct electrolyte abnormalities and closely monitor mental status MRI brain from 12/26/18 is negative for metastatic disease no infectious etiology present contributing to acute mental status change will closely monitor 2. Electrolyte abnormalities: -Hyponatremia: Pt has chronic hx of hyponatremia, Na being 123 in Oct 2018. Pt was started on NaCL tabs by oncologist earlier this month. Pt's urine Na, urine Osm, serum Osm are pending. concern for SIADH given hx. Pt was noted to have hyponatremia in Sep 2018, at that time it was contributed to beer potomania, however pt has not had a drink since September 2018. Will continue with fluid restriction at this time, f/u urine studies. Nephrology consultation is requested. Monitor Na levels q8h with goal correction of 6-8meq in 24 hours. -Hypokalemia: K supplemented -Hypomagnesemia: Mg supplemented -Hypophosphatemia: Phos supplemented continue to monitor electrolytes and replace as needed 3. 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 Squamous cell Ca of lung continue home pain medications 5. DVT ppx Lovenox SQ Care plan discussed with patient/RN code status: Full code - Time Spent With Patient Total time spent is greater than 50% in coordination of care (as documented) at patient's floor/unit and/or counseling patient:
[2018-12-29 09:47] LABS: Alanine Aminotransferase 8 Units/L (7-52); Albumin 3.1 g/dL (3.5-5.7); Albumin/Globulin Ratio 1.2 (1.1-2.2); Alkaline Phosphatase 77 Units/L (34-104); Aspartate Amino Transferase 13 Units/L (13-39); BUN/Creatinine Ratio 16 (6-26); Bilirubin,Total 0.9 mg/dL (0.3-1.0); Blood Urea Nitrogen 5 mg/dL (8-23); Calcium 8.2 mg/dL (8.6-10.3); Carbon Dioxide 20 mEq/L (23-29); Chloride 92 mEq/L (98-107); Globulin 2.6 g/dL (2.4-3.5); Glucose 89 mg/dL (70-105); Magnesium 1.6 mg/dL (1.6-2.6); Osmolality,Calculated 255 (280-300); Potassium 3.1 mEq/L (3.5-5.1); Sodium 124 mEq/L (136-145); Total Protein 5.7 g/dL (6.4-8.9); eGFR For Non-African Americans > 60 (> 60)
[2018-12-29] MEDS: Potassium Chloride 20 MEQ, Lidocaine 1% 2 ML in D5% in Water 250 ML IVPB SCH ×3 (10:17→16:35)
[2018-12-29] MEDS: Pantoprazole 40 MG VIAL IVP SCH (11:16)
--- NOTE | 2018-12-29 13:32 | Event Note ---
Date of Encounter: 12/29/18 Time of Encounter: 12:00 per Radiation Oncologist, Dr. Mueller's, request, patient seen as inpatient. Daughter at bedside. Patient awake and in noticeable pain, restless and moaning in bed. Her daughter notes that she complains of burning pain in her esophagus, worsening with eating and drinking. She noticed a large decline in oral intake ofver the past few days. Discussed Dr. Mueller's concerns for radiation esophagitis with daughter. per Dr. Mueller's recommendations, Carafate suspension four times per day and Nystatin suspension four times per day added to daily medications. Daughter notes that she did receive a GI cocktail (Maalox and viscous lidocaine) was given this morning. Recommend ongoing use with Magic Mouthwash.
[2018-12-29] MEDS: Nystatin SUSP 5 ML UD.LIQ PO SCH ×3 (14:23→21:02)
[2018-12-29] MEDS ORDERED: diazePAM 5 MG TABLET PO PRN (15:03)
[2018-12-29] MEDS: *HR* OxyCODONE/APAP 5/325 TABLET PO PRN ×2 (16:35→21:03)
[2018-12-29] MEDS: Magic Mouthwash 10 ML UD Cup PO PRN (16:36)
--- NOTE | 2018-12-29 17:49 | Electrocardiograph Report ---
[place] [id number] Test Date: 2018-12-28 Pat Name: Rosa Carranza Department: [id number] Room: 3A25 Gender: F End Worker: : 1955 Requested By: Rochelle Gayle Order Number: [id number] Reading MD: Pat Bansal Measurements Intervals [place] Rate: 103 P: 66 VA: 159 QRS: 63 QRSD: 80 T: 75 QT: 372 QTc: 487 Interpretive Statements Sinus tachycardia Atrial premature complexes Electronically Signed On 12-29-2018 17:48:00 EDT by Pat Bansal
--- NOTE | 2018-12-29 18:35 | Nephrology Consult Note ---
Date of Encounter: 12/29/18 Time of Encounter: 18:15 Assessment and Plan (1) Hyponatremia Current Visit: Yes Status: Acute Hyponatremia, likely multifactorial. She has a history of SIADH, with other potential hyponatremia risk factors of lung cancer, and recent diminished oral intake due to reported radiation esophagitis. I agree with the salt tablets, and recent IV fluids, and she must continue to have every 8 hours sodium checks to ensure a safe, slow correction of the hyponatremia. I would not add 3% saline at this time because the patient's plasma sodium is now above 120. I agree with the workup including urine studies, and labs as ordered. To help prevent hyponatremia, she may need demeclocycline added during this admission given her ongoing malignancy issues. I will first await to see her response to these initial steps at correcting hyponatremia. Thank you for consulting the [facility]; I will continue to follow with you. (2) Hypokalemia Current Visit: Yes Status: Acute She has received significant amounts of KCl, which I concur, and we will assess her response with follow-up labs. (3) Urinary incontinence Current Visit: No Status: Acute I recommend ruling out any urinary retention with retroperitoneal ultrasound Qualifiers: Urinary Incontinence type: urge incontinence Qualified Code(s): N39.41 - Urge incontinence (4) Squamous cell lung cancer Current Visit: No Status: Acute As per primary/oncology/radiation oncology Qualifiers: Laterality: right Qualified Code(s): C34.91 - Malignant neoplasm of unspecified part of right bronchus or lung History of Present Illness - Reason for Consult Consult date: 12/29/18 hyponatremia Requesting physician: Amy Ozuna - Chief Complaint Hyponatremia - History of Present Illness The patient is a pleasant 63-year-old female with a past medical history of squamous cell lung cancer and etc who presented with acute on chronic hyponatremia. She denied having nausea, vomiting, diarrhea, but she did affirm having chemotherapy recently. She reported no previous seizures in her past, but did affirm having been an alcoholic for many years. She denied taking NSAIDs recently. She denied having fevers. She did not affirm having chest pain, shortness of breath, fevers, dysuria, or rash. Family history: She denied having relatives with ESRD. Past Med Surg Social Fam HX - Past Medical History Medical history: arthritis, hypertension, other Additional medical history: lung cancer Psychiatric history: anxiety, depression - Past Surgical History Surgical History: colectomy, herniorrhaphy Additional surgical history: Total shoulder right,ORIF left distal radius - Social History Smoking Status: Current every day smoker Smokeless Tobacco Status: No Alcohol use: heavy, recent Drug use: none - Family History Father Living Status: Hx Family Cardiac Disorders: Yes Medications and Allergies Albuterol Sulfate [Ventolin Hfa] 2 puff IH Q6H PRN 09/10/18 [History] Acetaminophen [Tylenol] 650 mg PO Q6HR PRN tablet 09/19/18 [Rx] Folic Acid 1 mg PO DAILY tablet 09/19/18 [Rx] Thiamine (B-1) [Vitamin B-1] 100 mg PO DAILY tablet 09/19/18 [Rx] Mirabegron [Myrbetriq] 50 mg PO HS 10/30/18 [History] OxyCODONE/APAP 5/325 [Percocet 5/325 MG] 1 each PO Q4HR PRN 10/30/18 [History] Potassium Chloride [K-Tab ER] 10 meq PO BID 10/30/18 [History] Magic Mouthwash 5 ml PO Q4HR #240 ml 11/13/18 [Rx] Ondansetron ODT [Zofran ODT] 4 mg SL Q6HR #20 tab.rapdis 11/13/18 [Rx] Docusate Sodium [Colace] 100 mg PO BID #60 capsule 11/20/18 [Rx] Demeclocycline HCl 300 mg PO BID #20 tablet 12/18/18 [Rx] Bupropion HCl [Wellbutrin Xl] 300 mg PO DAILY 12/29/18 [History] Dexlansoprazole [Dexilant] 60 mg PO DAILY 12/29/18 [History] Fluticasone/Vilanterol [Breo Ellipta 200-25 Mcg INH] 1 each IH DAILY PRN 12/29/18 [History] Ibuprofen [Ibu-200] 200 mg PO Q4H PRN 12/29/18 [History] Lidocaine/Prilocaine [Emla] 1 appl TP AD PRN 12/29/18 [History] Megestrol Acetate [Megace] 40 mg PO BID 12/29/18 [History] Polyethylene Glycol 3350 [MiraLAX] 17 gm PO DAILY PRN 12/29/18 [History] Sodium Chloride [Sodium Chloride Tab] 1 gm PO BID 12/29/18 [History] diazePAM [Valium] 5 mg PO HS PRN 12/29/18 [History] Allergy/AdvReac Type Severity Reaction Status Date / Time baclofen AdvReac See Verified 12/18/18 08:56 Comments morphine AdvReac Itching Verified 12/18/18 08:56 oxybutynin [From Ditropan] AdvReac Confusion Verified 12/29/18 14:53 Review of Systems All Systems: reviewed and no additional remarkable complaints except as stated Exam - Vital Signs Vital signs: Initial Vital Signs Temp Pulse Resp BP Pulse Ox 99.6 F 100 18 116/75 99 12/28/18 22:24 12/28/18 22:24 12/28/18 22:24 12/28/18 22:24 12/28/18 22:24 Vital Signs - Last 8 Hours Temp Pulse Resp BP Pulse Ox 12/29/18 14:57 98.8 F 97 16 112/63 98 12/29/18 12:23 98.2 F 94 14 107/61 99 Intake and Output 12/29/18 12/29/18 12/29/18 07:59 15:59 23:59 Intake Total 104 / 104 442 / 442 262 / 262 Output Total 0 / 0 Balance 104 / 104 442 / 442 262 / 262 Intake: IV Fluids 104 / 104 262 / 262 262 / 262 Magnesium Sulfate 2 GM In 0.9 % 104 / 104 Sodium Chloride 100 ML @ 104 mls/hr IVPB ONCE ONE Rx#: [id number] KCl 20 MEQ Xylocaine 2 ML In 262 / 262 262 / 262 Dextrose 5% 250 ML @ 131 mls/hr IVPB Q2H [facility] Rx#:[id number] Oral 0 / 0 180 / 180 0 / 0 Output: Urine 0 / 0 Other: Meal Dinner Percent of Meal Consumed 0% # Voids 1 Weight 66.7 kg Blood Glucose* 97 142 Patient Weight 12/29/18 23:59 Weight 66.7 kg - General Appearance General appearance: appears started age, cachectic, fatigue, frail EENT: mucous membranes moist Additional Comments: She repetitively was moving her jaw Neck: supple Respiratory: clear Cardiology: no edema, regular rate, regular rhythm, normal S1, normal S2 Gastrointestinal: normoactive bowel sounds, no tenderness, no guarding Integumentary: no rash, warm and dry Neurologic: alert and oriented x3 (But she also had comments and replies for my questions that suggested mild confusion) Musculoskeletal: no erythema Psychiatric: mood/affect appropriate, cooperative Results - Lab Results 12/28/18 22:52 12/29/18 08:25 Most recent lab results Calcium 8.2 mg/dL (8.6-10.3) L 12/29/18 08:25 Phosphorus 4.0 mg/dL (2.7-4.5) 12/29/18 08:25 Magnesium 1.6 mg/dL (1.6-2.6) 12/29/18 08:25 Urine Creatinine 120 mg/dL 12/29/18 05:06 Urine Sodium 122.1 mEq/L 12/29/18 12:47 I reviewed her labs, vitals, medication list, progress notes, and previous imaging. Consult Discharge Plan - Plan Referrals: Talon Sommer MD [Primary Care Provider] -
[2018-12-29] MEDS ORDERED: DEMECLOCYCLINE HCL 300 MG PO SCH (21:00)
[2018-12-29] MEDS: (Mirabegron [Myrbetriq] 50 MG) PO SCH (21:04)
[2018-12-30] MEDS: *HR* OxyCODONE/APAP 5/325 TABLET PO PRN ×3 (00:26→17:36)
[2018-12-30 01:33] LABS: BUN/Creatinine Ratio 15 (6-26); Blood Urea Nitrogen 5 mg/dL (8-23); Calcium 8.5 mg/dL (8.6-10.3); Carbon Dioxide 21 mEq/L (23-29); Chloride 94 mEq/L (98-107); Glucose 108 mg/dL (70-105); Osmolality,Calculated 250 (280-300); Potassium 3.8 mEq/L (3.5-5.1); Sodium 121 mEq/L (136-145); eGFR For Non-African Americans > 60 (> 60)
[2018-12-30 04:46] LABS: Basophils % 0.9 %; Eosinophils # 0.1 K/mcL (0.0-0.6); Eosinophils % 2.2 %; Hematocrit 28.2 % (35.3-44.9); Immature Granulocytes % 0.6 % (0-4); Lymphocytes # 0.3 K/mcL (0.6-4.6); Lymphocytes % 8.8 %; Mean Corpuscular HGB Conc 35.5 g/dL (31.6-35.5); Mean Corpuscular Hemoglobin 30.5 pg (28.0-33.3); Mean Platelet Volume 8.6 fL (9.4-12.4); Monocytes # 0.8 K/mcL (0.0-1.3); Monocytes % 25.9 %; Platelet Count 262 K/mcL (140-400); Red Blood Count 3.28 M/mcL (3.82-4.97); Red Cell Distribution Width 17.4 % (11.5-14.5); Segmented Neutrophils % 61.6 %
[2018-12-30 05:08] LABS: Anisocytosis 1+ (Not Present); Microcytosis Present (Not Present); Platelet Estimate Normal (Normal)
[2018-12-30] MEDS: *HR* Enoxaparin 40 MG/0.4 ML SYRINGE SQ SCH (05:23)
[2018-12-30 07:28] LABS: BUN/Creatinine Ratio 14 (6-26); Blood Urea Nitrogen 5 mg/dL (8-23); Calcium 8.6 mg/dL (8.6-10.3); Carbon Dioxide 24 mEq/L (23-29); Chloride 94 mEq/L (98-107); Glucose 103 mg/dL (70-105); Magnesium 1.7 mg/dL (1.6-2.6); Osmolality,Calculated 254 (280-300); Phosphorous 2.3 mg/dL (2.7-4.5); Potassium 3.8 mEq/L (3.5-5.1); Sodium 123 mEq/L (136-145); eGFR For Non-African Americans > 60 (> 60)
[2018-12-30] MEDS: Pantoprazole 40 MG VIAL IVP SCH (10:03)
[2018-12-30] MEDS: Magic Mouthwash 10 ML UD Cup PO PRN ×2 (10:03→17:35)
[2018-12-30] MEDS: Nystatin SUSP 5 ML UD.LIQ PO SCH ×4 (10:03→21:05)
[2018-12-30] MEDS: Folic Acid 1 MG TABLET PO SCH (10:04)
[2018-12-30] MEDS: Thiamine (B-1) 100 MG TABLET PO SCH (10:04)
--- NOTE | 2018-12-30 10:51 | Nephrology Progress Note ---
Date of Encounter: 12/30/18 Time of Encounter: 10:05 - Assessment and Plan (1) Hyponatremia Current Visit: Yes Status: Acute Cont 1.5L F.R. and I plan to add Demeclocycline 600mg / 24hr hours, so I've started her on 300mg po BID. SE profile discussed with her daughter in detail. I spent about 15 min describing the findings of the pt's multifactorial hyp onatremia including SIADH and recent esophagitis. She appropriated received IVF at first to help correct a mild hypovolemic hyponatremia, which helped, but now that she has plateaued with her PNa, it's time to stop the IVF (already stopped) and follow a strict free water fluid restriction. To help prevent recurrent hyponatremia in pt's at high risk for recurrence (such as this pt who has lung Ca), demeclocycline is a great option. Change to q12hr PNa checks to help follow a slow, safe rate of correction. Discussed with the hospitalist on this complex pt who required a high degree of E/M and MDM. (2) Hypokalemia Current Visit: Yes Status: Acute (3) Urinary incontinence Current Visit: No Status: Acute Qualifiers: Qualified Code(s): N39.41 - Urge incontinence (4) Squamous cell lung cancer Current Visit: No Status: Acute Qualifiers: Qualified Code(s): C34.91 - Malignant neoplasm of unspecified part of right bronchus or lung Subjective Principal diagnosis: Hyponatremia Interval history: Pt was s/e earlier today. Her floor RN and her daughter was present. I updated her and gave her my card to help ensure the pt will have my office phone number. The pt had no new complaints but still affirmed feeling tire. She did not affirm N/V/D. Objective - Vital Signs Vital signs: Vital Signs Temp Pulse Resp BP Pulse Ox 12/30/18 06:51 98.0 F 98 18 104/66 98 12/30/18 04:28 98.2 F 96 16 122/70 94 12/30/18 00:18 99.7 F H 100 16 95/62 93 12/29/18 21:11 96 12/29/18 19:37 98.8 F 92 16 101/63 96 12/29/18 14:57 98.8 F 97 16 112/63 98 12/29/18 12:23 98.2 F 94 14 107/61 99 Intake and Output 12/29/18 12/30/18 12/30/18 23:59 07:59 15:59 Intake Total 1036 / 1036 150 / 150 Output Total 350 / 350 200 / 200 Balance 686 / 686 -50 / -50 Intake: IV Fluids 936 / 936 0.9 % Sodium Chloride 1,000 ML 50 / 50 @ 100 mls/hr IVC .Q10H [facility] Rx#: [id number] Magnesium Sulfate 1 GM In 0.9 % 102 / 102 Sodium Chloride 100 ML @ 100 mls/hr IVPB ONCE ONE Rx#: [id number] KCl 20 MEQ Xylocaine 2 ML In 524 / 524 Dextrose 5% 250 ML @ 131 mls/hr IVPB Q2H [facility] Rx#:[id number] Potassium Phosphate 44 MEQ In 0 260 / 260 .9 % Sodium Chloride 250 ML @ 40 mls/hr IVPB ONCE ONE Rx#: [id number] Oral 100 / 100 150 / 150 Output: Urine 350 / 350 200 / 200 Other: Meal Dinner Percent of Meal Consumed 0% Blood Glucose* 142 - General Appearance General appearance: Present: cachectic, fatigue, frail EENT: Present: ATNC, PERRL, mucous membranes moist Neck: Present: supple Respiratory: Present: rhonchi (scattered) Cardiology: Present: no edema, regular rate, regular rhythm, normal S1, normal S2 Gastrointestinal: Present: normoactive bowel sounds, no tenderness, no guarding, costovertebral Integumentary: Present: chronic venous stasis Neurologic: Present: no focal deficit, no asterixis Musculoskeletal: Present: no cyanosis, no clubbing Psychiatric: Present: cooperative - Lab 12/30/18 04:03 12/30/18 06:55 Most recent lab results Calcium 8.6 mg/dL (8.6-10.3) 12/30/18 06:55 Phosphorus 2.3 mg/dL (2.7-4.5) L 12/30/18 06:55 Magnesium 1.7 mg/dL (1.6-2.6) 12/30/18 06:55 Urine Creatinine 120 mg/dL 12/29/18 05:06 Urine Sodium 122.1 mEq/L 12/29/18 12:47 Consult Discharge Plan - Plan Referrals: KemalSelinaOwaneco L, MD [Primary Care Provider] -
--- NOTE | 2018-12-30 12:30 | Internal Med Progress Note ---
Hospitalist Progress Note - Encounter Date of Encounter: 12/30/18 Time of Encounter: 12:05 - Subjective Interval History: Pt seen and examined with daughter present at bedside. Pt resting in bed and reports of feeling better compared previous day. Reports of burning in her esophagus but states it is mildly improved from previous day. As per daughter, pt's mental status is improving but not at baseline. No overnight events reported Ten point ROS is negative except as listed above - Exam Vitals: Temp Pulse Resp BP Pulse Ox 97.9 F 104 18 102/66 98 12/30/18 10:40 12/30/18 10:40 12/30/18 10:40 12/30/18 10:40 12/30/18 10:40 Exam: General: No acute distress, AAO x 3, frail appearing elderly female HEENT: EOMI, NC/AT, no scleral icterus, poor oral hygiene Respiratory: Clear to auscultate bilaterally, no wheezing, no rales Cardiovascular: Regular, Rate, Rhythm, No murmurs, No JVD GI: Soft, Non tender, non distended, normal bowel sounds Ext: No edema, no tenderness, positive pulses Skin: Chronic venous stasis in bilateral LE Neuro: AAO x 3, no focal deficits - Summary of Assessment and Plan Summary of Assessment and Plan: Pt is a 63y/o female with PMH Of squamous cell carcinoma of lung currently undergoing chemotherapy and radiation, chronic hyponatremia, alcohol abuse, and hypertension who is admitted for acute change in mental status. 1. Acute change in mental status Likely secondary to metabolic derangements mental status improving, however not at baseline as per family MRI brain from 12/26/18 is negative for metastatic disease no infectious etiology present contributing to acute mental status change will closely monitor 2. Electrolyte abnormalities: -Hyponatremia: Pt has chronic hx of hyponatremia, Na being 123 in Oct 2018. Pt was started on NaCL tabs by oncologist earlier this month. Nephrology input appreciated. Hyponatremia likely secondary to SIADH. Will conitnue fluid restriction and continue management as per nephrology. Monitor Na levels q12h -Hypokalemia: resolved -Hypomagnesemia: resolved -Hypophosphatemia: Phos supplemented continue to monitor electrolytes and replace as needed 3. 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 Squamous cell Ca of lung continue home pain medications 5. DVT ppx Lovenox SQ Care plan discussed with patient/RN/family code status: Full code - Time Spent with Patient Total time spent is greater than 50% in coordination of care (as documented) at patient's floor/unit and/or counseling patient: Plan of Care Discussed with: patient (patient/RN/family/jd edwards consultant) Internal Medicine: Result - Labs CBC & Chem 7: 12/30/18 04:03 12/30/18 06:55 Labs: Short CBC 12/30/18 Range/Units 04:03 WBC 3.2 L (4.3-11.1) K/mcL Hgb 10.0 L (11.5-15.4) g/dL Hct 28.2 L (35.3-44.9) % Plt Count 262 (140-400) K/mcL Neutrophils # 2.0 (1.6-8.9) K/mcL BMP 12/30/18 12/30/18 01:00 06:55 Sodium 121 L 123 L Potassium 3.8 3.8 Chloride 94 L 94 L Carbon Dioxide 21 L 24 BUN 5 L 5 L Creatinine 0.34 L 0.37 L Glucose 108 H 103 Calcium 8.5 L 8.6 Consult Discharge Plan - Plan Referrals: Talon Sommer MD [Primary Care Provider] -
[2018-12-30 18:38] LABS: BUN/Creatinine Ratio 19 (6-26); Blood Urea Nitrogen 7 mg/dL (8-23); Calcium 8.3 mg/dL (8.6-10.3); Carbon Dioxide 23 mEq/L (23-29); Chloride 95 mEq/L (98-107); Glucose 115 mg/dL (70-105); Osmolality,Calculated 259 (280-300); Potassium 3.3 mEq/L (3.5-5.1); Sodium 125 mEq/L (136-145); eGFR For Non-African Americans > 60 (> 60)
[2018-12-30] MEDS: (Mirabegron [Myrbetriq] 50 MG) PO SCH (21:07)
[2018-12-31 04:41] LABS: Basophils % 0.8 %; Eosinophils # 0.1 K/mcL (0.0-0.6); Eosinophils % 2.4 %; Hematocrit 27.1 % (35.3-44.9); Hemoglobin 9.5 g/dL (11.5-15.4); Immature Granulocytes % 0.8 % (0-4); Lymphocytes # 0.3 K/mcL (0.6-4.6); Lymphocytes % 12.3 %; Mean Corpuscular HGB Conc 35.1 g/dL (31.6-35.5); Mean Corpuscular Hemoglobin 30.9 pg (28.0-33.3); Mean Corpuscular Volume 88.3 fL (83.0-100.0); Mean Platelet Volume 8.2 fL (9.4-12.4); Monocytes # 0.7 K/mcL (0.0-1.3); Monocytes % 28.5 %; Neutrophils # 1.4 K/mcL (1.6-8.9); Platelet Count 255 K/mcL (140-400); Red Blood Count 3.07 M/mcL (3.82-4.97); Red Cell Distribution Width 17.5 % (11.5-14.5); Segmented Neutrophils % 55.2 %
[2018-12-31 04:56] LABS: BUN/Creatinine Ratio 19 (6-26); Blood Urea Nitrogen 6 mg/dL (8-23); Calcium 8.2 mg/dL (8.6-10.3); Carbon Dioxide 22 mEq/L (23-29); Chloride 97 mEq/L (98-107); Glucose 100 mg/dL (70-105); Magnesium 1.5 mg/dL (1.6-2.6); Osmolality,Calculated 260 (280-300); Phosphorous 2.6 mg/dL (2.7-4.5); Potassium 3.3 mEq/L (3.5-5.1); Sodium 126 mEq/L (136-145); eGFR For Non-African Americans > 60 (> 60)
[2018-12-31 05:01] LABS: Platelet Estimate Normal (Normal)
[2018-12-31] MEDS: *HR* Enoxaparin 40 MG/0.4 ML SYRINGE SQ SCH (06:13)
[2018-12-31] MEDS ORDERED: Potassium Phosphate 44 MEQ in 0.9 % Sodium Chloride 250 ML IVPB ONE (08:38)
[2018-12-31] MEDS: Thiamine (B-1) 100 MG TABLET PO SCH (09:17)
[2018-12-31] MEDS: Folic Acid 1 MG TABLET PO SCH (09:17)
[2018-12-31] MEDS: Pantoprazole 40 MG VIAL IVP SCH (09:19)
[2018-12-31] MEDS: Nystatin SUSP 5 ML UD.LIQ PO SCH ×4 (09:19→21:35)
--- NOTE | 2018-12-31 10:35 | Nephrology Progress Note ---
Date of Encounter: 12/31/18 Time of Encounter: 10:20 - Assessment and Plan (1) Hyponatremia Current Visit: Yes Status: Acute Continue the NaCl 1gm po BID, low dose demeclocycline and Fluid restriction: all of which should be continued at D/C. (2) Hypokalemia Current Visit: Yes Status: Acute Agree with replacement. (3) Squamous cell lung cancer Current Visit: No Status: Acute Contributing to her chronic hyponatremia. Qualifiers: Laterality: right Qualified Code(s): C34.91 - Malignant neoplasm of unspecified part of right bronchus or lung (4) Hypophosphatemia Current Visit: Yes Status: Acute Agree with replacement. Subjective Principal diagnosis: Hyponatremia Interval history: Pt was s/e earlier today. Her daughter was present. The pt reported feeling stronger and more alert today. She did not affirm active N/V/D or diarrhea. Objective - Vital Signs Vital signs: Vital Signs Temp Pulse Resp BP Pulse Ox 12/31/18 10:06 16 98 12/31/18 04:25 98.5 F 98 15 118/69 97 12/30/18 23:50 98.8 F 102 14 97/62 96 12/30/18 19:41 98.9 F 115 18 103/66 97 12/30/18 14:37 98.9 F 100 18 99/61 96 12/30/18 10:40 97.9 F 104 18 102/66 98 Intake and Output 12/30/18 12/31/18 12/31/18 23:59 07:59 15:59 Intake Total 120 / 120 Output Total 300 / 300 0 / 0 Balance -180 / -180 0 / 0 Intake: Oral 120 / 120 Output: Urine 300 / 300 0 / 0 Stool 0 / 0 Other: Stool Size Large Stool Characteristics Normal for Patient Stool Color Brown # Voids 1 1 # Bowel Movements 1 Weight 66.9 kg Patient Weight 12/31/18 23:59 Weight 66.9 kg - General Appearance General appearance: Present: cachectic, chronically ill, frail EENT: Present: ATNC, PERRL, mucous membranes moist Neck: Present: supple Respiratory: Present: wheezing Cardiology: Present: no edema, regular rate, regular rhythm, normal S1, normal S2 Gastrointestinal: Present: normoactive bowel sounds, no guarding Integumentary: Present: chronic venous stasis Neurologic: Present: no focal deficit, no asterixis, alert and oriented x3 Psychiatric: Present: cooperative - Lab 12/31/18 04:09 12/31/18 04:09 Most recent lab results Calcium 8.2 mg/dL (8.6-10.3) L 12/31/18 04:09 Phosphorus 2.6 mg/dL (2.7-4.5) L 12/31/18 04:09 Magnesium 1.5 mg/dL (1.6-2.6) L 12/31/18 04:09 Urine Creatinine 120 mg/dL 12/29/18 05:06 Urine Sodium 58.0 mEq/L 12/30/18 10:45 Consult Discharge Plan - Plan Referrals: Talon Sommer MD [Primary Care Provider] -
--- NOTE | 2018-12-31 12:54 | Internal Med Progress Note ---
Hospitalist Progress Note - Encounter Date of Encounter: 12/31/18 Time of Encounter: 12:43 - Subjective Interval History: Pt seen and examined with daughter present at bedside. Pt is AAO x 3 and as per daughter back to her baseline. Pt noted to be somnolent but easily arousable and answering questions appropriately. Pt reports of living with her daughter and would not want to go to SNF after discharge. As per daughter, pt gets extremely confused and agitated with Valium and requests to hold this medication. Pt denies any pain,n,v, fever, or chills at this time daughter states that the patient was noted to be wheezing earlier this morning and requests bronchodilator therapy. Ten point ROS is negative except as listed above - Exam Vitals: Temp Pulse Resp BP Pulse Ox 99.0 F 102 14 114/75 96 12/31/18 10:38 12/31/18 10:38 12/31/18 10:38 12/31/18 10:38 12/31/18 10:38 Exam: General: No acute distress, AAO x 3, frail appearing elderly female HEENT: EOMI, NC/AT, no scleral icterus, poor oral hygiene Respiratory: Clear to auscultate bilaterally, no wheezing, no rales Cardiovascular: Regular, Rate, Rhythm, No murmurs, No JVD GI: Soft, Non tender, non distended, normal bowel sounds Ext: No edema, no tenderness, positive pulses Skin: Chronic venous stasis in bilateral LE Neuro: AAO x 3, no focal deficits - Summary of Assessment and Plan Summary of Assessment and Plan: Pt is a 63y/o female with PMH Of squamous cell carcinoma of lung currently undergoing chemotherapy and radiation, chronic hyponatremia, alcohol abuse, and hypertension who is admitted for acute change in mental status. 1. Acute change in mental status Likely secondary to metabolic derangements mental status back to baseline as per family MRI brain from 12/26/18 is negative for metastatic disease no infectious etiology present contributing to acute mental status change will closely monitor 2. Electrolyte abnormalities: -Hyponatremia: Pt has chronic hx of hyponatremia, Na being 123 in Oct 2018. Pt was started on NaCL tabs by oncologist earlier this month. Nephrology input appreciated. Hyponatremia likely secondary to SIADH. Will continue fluid restriction and continue management as per nephrology. Monitor Na levels q12h -Hypokalemia: K supplemented -Hypomagnesemia: Mg supplemented -Hypophosphatemia: Phos supplemented continue to monitor electrolytes and replace as needed 3. 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 Squamous cell Ca of lung continue home pain medications 5. DVT ppx Lovenox SQ Care plan discussed with patient/RN/family Pt encouraged to get out of bed to chair and increase activity as tolerated code status: Full code - Time Spent with Patient Total time spent is greater than 50% in coordination of care (as documented) at patient's floor/unit and/or counseling patient: Plan of Care Discussed with: patient (patient/RN/Family/case management) Internal Medicine: Result - Labs CBC & Chem 7: 12/31/18 04:09 12/31/18 04:09 Labs: Short CBC 12/31/18 Range/Units 04:09 WBC 2.5 L (4.3-11.1) K/mcL Hgb 9.5 L (11.5-15.4) g/dL Hct 27.1 L (35.3-44.9) % Plt Count 255 (140-400) K/mcL Neutrophils # 1.4 L (1.6-8.9) K/mcL BMP 12/30/18 12/31/18 17:49 04:09 Sodium 125 L 126 L Potassium 3.3 L 3.3 L Chloride 95 L 97 L Carbon Dioxide 23 22 L BUN 7 L 6 L Creatinine 0.36 L 0.32 L Glucose 115 H 100 Calcium 8.3 L 8.2 L Consult Discharge Plan - Plan Referrals: Talon Sommer MD [Primary Care Provider] -
[2018-12-31 20:13] LABS: BUN/Creatinine Ratio 21 (6-26); Blood Urea Nitrogen 6 mg/dL (8-23); Calcium 8.1 mg/dL (8.6-10.3); Carbon Dioxide 23 mEq/L (23-29); Chloride 96 mEq/L (98-107); Glucose 116 mg/dL (70-105); Osmolality,Calculated 259 (280-300); Potassium 3.5 mEq/L (3.5-5.1); Sodium 125 mEq/L (136-145); eGFR For Non-African Americans > 60 (> 60)
[2018-12-31] MEDS: (Mirabegron [Myrbetriq] 50 MG) PO SCH (21:36)
[2019-01-01 04:07] LABS: Basophils % 0.7 %; Eosinophils # 0.1 K/mcL (0.0-0.6); Eosinophils % 2.7 %; Hematocrit 27.2 % (35.3-44.9); Hemoglobin 9.6 g/dL (11.5-15.4); Immature Granulocytes % 0.3 % (0-4); Lymphocytes # 0.4 K/mcL (0.6-4.6); Lymphocytes % 13.1 %; Mean Corpuscular HGB Conc 35.3 g/dL (31.6-35.5); Mean Corpuscular Volume 87.7 fL (83.0-100.0); Mean Platelet Volume 8.3 fL (9.4-12.4); Monocytes # 0.7 K/mcL (0.0-1.3); Monocytes % 25.1 %; Neutrophils # 1.7 K/mcL (1.6-8.9); Platelet Count 248 K/mcL (140-400); Red Cell Distribution Width 17.6 % (11.5-14.5); Segmented Neutrophils % 58.1 %
[2019-01-01 04:26] LABS: BUN/Creatinine Ratio 14 (6-26); Blood Urea Nitrogen 5 mg/dL (8-23); Calcium 8.5 mg/dL (8.6-10.3); Carbon Dioxide 22 mEq/L (23-29); Chloride 95 mEq/L (98-107); Glucose 105 mg/dL (70-105); Magnesium 1.5 mg/dL (1.6-2.6); Osmolality,Calculated 254 (280-300); Phosphorous 2.7 mg/dL (2.7-4.5); Potassium 3.4 mEq/L (3.5-5.1); Sodium 123 mEq/L (136-145); eGFR For Non-African Americans > 60 (> 60)
[2019-01-01 04:34] LABS: Platelet Estimate Normal (Normal)
[2019-01-01] MEDS: *HR* Enoxaparin 40 MG/0.4 ML SYRINGE SQ SCH (05:37)
[2019-01-01] MEDS: Nystatin SUSP 5 ML UD.LIQ PO SCH ×4 (08:52→21:14)
[2019-01-01] MEDS: Thiamine (B-1) 100 MG TABLET PO SCH (08:52)
[2019-01-01] MEDS: Folic Acid 1 MG TABLET PO SCH (08:52)
[2019-01-01] MEDS: Pantoprazole 40 MG VIAL IVP SCH (08:53)
[2019-01-01] MEDS ORDERED: Potassium Chloride 20 MEQ, Lidocaine 1% 2 ML in D5% in Water 250 ML IVPB ONE (09:06)
--- NOTE | 2019-01-01 09:26 | Nephrology Progress Note ---
Date of Encounter: 01/01/19 Time of Encounter: 09:24 - Assessment and Plan (1) Hyponatremia Current Visit: Yes Status: Acute Na+ down to 123 today Increase salt tabs 1gm to TID Increase Demeclocycline to 600mg BID per Dr Clemente Continue fluid restriction of 1.5 liters/day All the above of should be continued at D/C. (2) Squamous cell lung cancer Current Visit: No Status: Acute Contributing to her chronic hyponatremia. Qualifiers: Laterality: right Qualified Code(s): C34.91 - Malignant neoplasm of unspecified part of right bronchus or lung (3) Hypokalemia Current Visit: Yes Status: Acute K+ 3.4-agree with replacement Subjective Principal diagnosis: Hyponatremia Interval history: Patient seen and examined. Answers questions, has no complaints this am Objective - Vital Signs Vital signs: Vital Signs Temp Pulse Resp BP Pulse Ox 01/01/19 08:59 97 01/01/19 06:14 98.9 F 107 15 116/74 97 01/01/19 04:38 100.1 F H 104 15 122/76 95 12/31/18 23:21 99.5 F 101 14 106/66 96 12/31/18 21:34 99 12/31/18 18:20 98 F 98 14 120/75 99 12/31/18 14:56 98.1 F 95 14 124/80 99 12/31/18 10:38 99.0 F 102 14 114/75 96 12/31/18 10:06 16 98 Intake and Output 12/31/18 01/01/19 01/01/19 23:59 07:59 15:59 Intake Total 480 / 480 0 / 0 624 / 624 Output Total 0 / 0 0 / 0 Balance 480 / 480 0 / 0 624 / 624 Intake: IV Fluids 624 / 624 Oral 480 / 480 0 / 0 Output: Urine 0 / 0 0 / 0 Other: Meal Dinner Percent of Meal Consumed 75% Stool Size Moderate Stool Consistency soft formed Stool Color Brown # Voids 1 0 # Urine Diapers 1 # Bowel Movements 1 0 Weight 67.8 kg Patient Weight 01/01/19 23:59 Weight 67.8 kg - General Appearance General appearance: Present: chronically ill, frail EENT: Present: ATNC, mucous membranes moist, hearing intact, vision intact Neck: Present: supple Respiratory: Present: course breath sounds, rhonchi (smoker) Cardiology: Present: no edema, normal S1, normal S2 Gastrointestinal: Present: no tenderness, no guarding Integumentary: Present: warm and dry Neurologic: Present: alert and oriented x3 Psychiatric: Present: mood/affect appropriate, cooperative - Lab 01/01/19 03:47 01/01/19 03:47 Most recent lab results Calcium 8.5 mg/dL (8.6-10.3) L 01/01/19 03:47 Phosphorus 2.7 mg/dL (2.7-4.5) 01/01/19 03:47 Magnesium 1.5 mg/dL (1.6-2.6) L 01/01/19 03:47 Urine Creatinine 120 mg/dL 12/29/18 05:06 Urine Sodium 58.0 mEq/L 12/30/18 10:45 Consult Discharge Plan - Plan Referrals: Talon Sommer MD [Primary Care Provider] -
--- NOTE | 2019-01-01 14:14 | Internal Med Progress Note ---
Hospitalist Progress Note - Encounter Date of Encounter: 01/01/19 Time of Encounter: 12:25 - Subjective Interval History: Pt seen and examined at bedside. Mental status back to baseline Na levels continued to decline. Denies any chest pain, headache, sob. Wishes to return to home No overnight events reported. Ten point ROS is negative except as listed above - Exam Vitals: Temp Pulse Resp BP Pulse Ox 98.3 F 102 14 116/74 94 01/01/19 10:00 01/01/19 10:00 01/01/19 10:00 01/01/19 06:14 01/01/19 10:00 Exam: General: No acute distress, AAO x 3, frail appearing elderly female HEENT: EOMI, NC/AT, no scleral icterus, poor oral hygiene Respiratory: Clear to auscultate bilaterally, no wheezing, no rales Cardiovascular: Regular, Rate, Rhythm, No murmurs, No JVD GI: Soft, Non tender, non distended, normal bowel sounds Ext: No edema, no tenderness, positive pulses Skin: Chronic venous stasis in bilateral LE Neuro: AAO x 3, no focal deficits - Summary of Assessment and Plan Summary of Assessment and Plan: Pt is a 63y/o female with PMH Of squamous cell carcinoma of lung currently undergoing chemotherapy and radiation, chronic hyponatremia, alcohol abuse, and hypertension who is admitted for acute change in mental status. 1. Acute change in mental status Likely secondary to metabolic derangements mental status back to baseline as per family MRI brain from 12/26/18 is negative for metastatic disease no infectious etiology present contributing to acute mental status change will closely monitor 2. Electrolyte abnormalities: -Hyponatremia: Pt has chronic hx of hyponatremia, Na being 123 in Oct 2018. Pt was started on NaCL tabs by oncologist earlier this month. Nephrology input appreciated. Hyponatremia likely secondary to SIADH. Will continue fluid restriction and continue management as per nephrology. Demeclocycline dose increased by nephrology -Hypokalemia: K supplemented -Hypomagnesemia: Mg supplemented -Hypophosphatemia: resolved continue to monitor electrolytes and replace as needed 3. 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 Squamous cell Ca of lung continue home pain medications 5. DVT ppx Lovenox SQ Care plan discussed with patient/RN Pt encouraged to get out of bed to chair and increase activity as tolerated code status: Full code - Time Spent with Patient Total time spent is greater than 50% in coordination of care (as documented) at patient's floor/unit and/or counseling patient: Plan of Care Discussed with: patient (patient/RN) Internal Medicine: Result - Labs CBC & Chem 7: 01/01/19 03:47 01/01/19 03:47 Labs: Short CBC 01/01/19 Range/Units 03:47 WBC 2.9 L (4.3-11.1) K/mcL Hgb 9.6 L (11.5-15.4) g/dL Hct 27.2 L (35.3-44.9) % Plt Count 248 (140-400) K/mcL Neutrophils # 1.7 (1.6-8.9) K/mcL BMP 12/31/18 01/01/19 19:00 03:47 Sodium 125 L 123 L Potassium 3.5 3.4 L Chloride 96 L 95 L Carbon Dioxide 23 22 L BUN 6 L 5 L Creatinine 0.29 L 0.35 L Glucose 116 H 105 Calcium 8.1 L 8.5 L Consult Discharge Plan - Plan Referrals: Talon Sommer MD [Primary Care Provider] -
[2019-01-01] MEDS: (Mirabegron [Myrbetriq] 50 MG) PO SCH (21:15)
[2019-01-01] MEDS: *HR* OxyCODONE/APAP 5/325 TABLET PO PRN (21:20)
[2019-01-02 04:52] LABS: Basophils % 0.6 %; Eosinophils # 0.1 K/mcL (0.0-0.6); Eosinophils % 3.9 %; Hematocrit 28.5 % (35.3-44.9); Hemoglobin 9.9 g/dL (11.5-15.4); Immature Granulocytes % 0.3 % (0-4); Lymphocytes # 0.3 K/mcL (0.6-4.6); Lymphocytes % 10.3 %; Mean Corpuscular HGB Conc 34.7 g/dL (31.6-35.5); Mean Corpuscular Hemoglobin 30.7 pg (28.0-33.3); Mean Corpuscular Volume 88.2 fL (83.0-100.0); Mean Platelet Volume 8.6 fL (9.4-12.4); Monocytes # 0.8 K/mcL (0.0-1.3); Monocytes % 26.5 %; Neutrophils # 1.8 K/mcL (1.6-8.9); Platelet Count 277 K/mcL (140-400); Red Blood Count 3.23 M/mcL (3.82-4.97); Red Cell Distribution Width 17.6 % (11.5-14.5); Segmented Neutrophils % 58.4 %
[2019-01-02 04:56] LABS: BUN/Creatinine Ratio 16 (6-26); Blood Urea Nitrogen 5 mg/dL (8-23); Calcium 8.3 mg/dL (8.6-10.3); Carbon Dioxide 22 mEq/L (23-29); Chloride 98 mEq/L (98-107); Glucose 142 mg/dL (70-105); Magnesium 1.5 mg/dL (1.6-2.6); Osmolality,Calculated 264 (280-300); Potassium 3.1 mEq/L (3.5-5.1); Sodium 127 mEq/L (136-145); eGFR For Non-African Americans > 60 (> 60)
[2019-01-02] MEDS: *HR* Enoxaparin 40 MG/0.4 ML SYRINGE SQ SCH (05:09)
[2019-01-02 06:44] LABS: Platelet Estimate Normal (Normal)
[2019-01-02] MEDS: Thiamine (B-1) 100 MG TABLET PO SCH (09:19)
[2019-01-02] MEDS: Nystatin SUSP 5 ML UD.LIQ PO SCH ×2 (09:19→11:41)
[2019-01-02] MEDS: Potassium Chloride 20 MEQ, Lidocaine 1% 2 ML in D5% in Water 250 ML IVPB SCH ×2 (09:20→11:04)
[2019-01-02] MEDS: Folic Acid 1 MG TABLET PO SCH (09:20)
--- NOTE | 2019-01-02 10:44 | Physician Discharge Referral ---
Home Health/Hosp Referral Info Transfer to: Home Health Provider in Charge Post Discharge: PCP - Diagnosis (1) Hyponatremia Priority: Primary Status: Resolved (2) Altered mental status Priority: Primary Status: Resolved (3) Electrolyte imbalance Priority: Primary Status: Resolved - Respiratory Orders Smoking Cessation: Smoking cessation has been advised. For more information, call the [place] Tobacco Quit Line at 3-348-DRON-NOW. - Services Needed Following services are medically necessary services: Nursing, Home Health Aide, Physical Therapy, Occupational Therapy - Transfer Medications Prescriptions: Demeclocycline [Declomycin] 600 mg PO BID #60 tablet Sodium Chloride [Sodium Chloride Tab] 1 gm PO TID #90 tablet Sucralfate [Carafate] 1 gm PO QIDAC #30 udc Home Medications: Albuterol Sulfate [Ventolin Hfa] 2 puff IH Q6H PRN 09/10/18 [History] Acetaminophen [Tylenol] 650 mg PO Q6HR PRN tablet 09/19/18 [Rx] Folic Acid 1 mg PO DAILY tablet 09/19/18 [Rx] Thiamine (B-1) [Vitamin B-1] 100 mg PO DAILY tablet 09/19/18 [Rx] Mirabegron [Myrbetriq] 50 mg PO HS 10/30/18 [History] OxyCODONE/APAP 5/325 [Percocet 5/325 MG] 1 each PO Q4HR PRN 10/30/18 [History] Potassium Chloride [K-Tab ER] 10 meq PO BID 10/30/18 [History] Magic Mouthwash 5 ml PO Q4HR #240 ml 11/13/18 [Rx] Ondansetron ODT [Zofran ODT] 4 mg SL Q6HR #20 tab.rapdis 11/13/18 [Rx] Docusate Sodium [Colace] 100 mg PO BID #60 capsule 11/20/18 [Rx] Bupropion HCl [Wellbutrin Xl] 300 mg PO DAILY 12/29/18 [History] Dexlansoprazole [Dexilant] 60 mg PO DAILY 12/29/18 [History] Fluticasone/Vilanterol [Breo Ellipta 200-25 Mcg INH] 1 each IH DAILY PRN 12/29/18 [History] Ibuprofen [Ibu-200] 200 mg PO Q4H PRN 12/29/18 [History] Lidocaine/Prilocaine [Emla] 1 appl TP AD PRN 12/29/18 [History] Megestrol Acetate [Megace] 40 mg PO BID 12/29/18 [History] Polyethylene Glycol 3350 [MiraLAX] 17 gm PO DAILY PRN 12/29/18 [History] Demeclocycline [Declomycin] 600 mg PO BID #60 tablet 01/02/19 [Rx] Sodium Chloride [Sodium Chloride Tab] 1 gm PO TID #90 tablet 01/02/19 [Rx] Sucralfate [Carafate] 1 gm PO QIDAC #30 udc 01/02/19 [Rx] Allergies/Adverse Reactions: Allergy/AdvReac Type Severity Reaction Status Date / Time baclofen AdvReac See Verified 12/18/18 08:56 Comments morphine AdvReac Itching Verified 12/18/18 08:56 oxybutynin [From Ditropan] AdvReac Confusion Verified 12/29/18 14:53 Certification: Further, I certify that my clinical findings support that this patient is homebound (i.e. absences from home require considerable and taxing effort and are for medical reasons or yarsanism services or infrequently or short duration when for other reasons) because: Homebound Reason: Patient requires assistance of a person or device to safely leave home Attestation: My signature below is to certify that this patient is under my care and that I, or nurse practitioner, or a physician's bilingual office assistant working with me, has a [id number] encounter with this patient.
--- NOTE | 2019-01-02 10:53 | Discharge Summary ---
- NOTES TO OUTPATIENT PROVIDER Notes to Outpatient Provider: Pt was admitted for AMS with hyponatremia and electrolyte abnormalities. Hyponatremia improving. Demeclocycline dose and Nacl tabs dose increased by nephrology. Please closely monitor BMP after discharge. Orders not resulted at time of discharge: Pending orders 12/28/18 22:52 Culture,Blood [BC] Stat Date of Encounter: 01/02/19 Time of Encounter: 09:35 - Discharge Diagnosis (1) Hyponatremia Priority: Primary Status: Chronic (2) Altered mental status Priority: Primary Status: Resolved Qualifiers: Altered mental status type: disorientation Qualified Code(s): R41.0 - Disorientation, unspecified (3) Electrolyte imbalance Priority: Secondary Status: Resolved Hospital course: Ms. Carranza is a 63 year old female with PMH of lung ca (stage III squamous cell carcinoma) currently on chemotherapy and radiation, chronic hyponatremia, alcohol abuse who was admitted for AMS with hyponatremia and electrolyte abnormalities. Pt was followed by nephrology and there was a concern for SIADH. Pt was placed on fluid restricted diet, home dose of demeclocyline was increased and NaCl tabs dose was increased. Other electrolyte abnormalities were corrected. Pt's mental status returned to baseline. She was also started on carafate for concerning radiation esophagitis. Pt seen and examined on the day of discharge. She is back to her baseline mental status. She wishes to go home with continuation of home health services. I called patient's daughter Dalia Blanc, and discharge care plan was discussed in detail with the patient's daughter. Patient and daughter are in agreement of the discharge care plan. Patient to follow-up with PCP, nephrology, oncology after discharge. Discharge discussed with: patient, family, nurse, social work, case management, merchandising consultant - Time Spent with Patient Total time spent providing and/or coordinating discharge services: Time spent: Greater than 30 minutes - Discharge Medications Prescriptions: New Demeclocycline [Declomycin] 600 mg PO BID #60 tablet Sodium Chloride [Sodium Chloride Tab] 1 gm PO TID #90 tablet Sucralfate [Carafate] 1 gm PO QIDAC #30 udc Continue Albuterol Sulfate [Ventolin Hfa] 2 puff IH Q6H PRN PRN Reason: Dyspnea Acetaminophen [Tylenol] 650 mg PO Q6HR PRN tablet PRN Reason: Pain Folic Acid 1 mg PO DAILY tablet Thiamine (B-1) [Vitamin B-1] 100 mg PO DAILY tablet Potassium Chloride [K-Tab ER] 10 meq PO BID OxyCODONE/APAP 5/325 [Percocet 5/325 MG] 1 each PO Q4HR PRN PRN Reason: Pain Mirabegron [Myrbetriq] 50 mg PO HS Magic Mouthwash 5 ml PO Q4HR #240 ml Ondansetron ODT [Zofran ODT] 4 mg SL Q6HR #20 tab.rapdis Docusate Sodium [Colace] 100 mg PO BID #60 capsule Polyethylene Glycol 3350 [MiraLAX] 17 gm PO DAILY PRN PRN Reason: Constipation Megestrol Acetate [Megace] 40 mg PO BID Lidocaine/Prilocaine [Emla] 1 appl TP AD PRN PRN Reason: chemo port Ibuprofen [Ibu-200] 200 mg PO Q4H PRN PRN Reason: Pain Dexlansoprazole [Dexilant] 60 mg PO DAILY Bupropion HCl [Wellbutrin Xl] 300 mg PO DAILY Fluticasone/Vilanterol [Breo Ellipta 200-25 Mcg INH] 1 each IH DAILY PRN PRN Reason: Shortness Of Breath Discontinued Demeclocycline HCl 300 mg PO BID #20 tablet diazePAM [Valium] 5 mg PO HS PRN PRN Reason: Insomnia Sodium Chloride [Sodium Chloride Tab] 1 gm PO BID Home Medications: Albuterol Sulfate [Ventolin Hfa] 2 puff IH Q6H PRN 09/10/18 [History] Acetaminophen [Tylenol] 650 mg PO Q6HR PRN tablet 09/19/18 [Rx] Folic Acid 1 mg PO DAILY tablet 09/19/18 [Rx] Thiamine (B-1) [Vitamin B-1] 100 mg PO DAILY tablet 09/19/18 [Rx] Mirabegron [Myrbetriq] 50 mg PO HS 10/30/18 [History] OxyCODONE/APAP 5/325 [Percocet 5/325 MG] 1 each PO Q4HR PRN 10/30/18 [History] Potassium Chloride [K-Tab ER] 10 meq PO BID 10/30/18 [History] Magic Mouthwash 5 ml PO Q4HR #240 ml 11/13/18 [Rx] Ondansetron ODT [Zofran ODT] 4 mg SL Q6HR #20 tab.rapdis 11/13/18 [Rx] Docusate Sodium [Colace] 100 mg PO BID #60 capsule 11/20/18 [Rx] Bupropion HCl [Wellbutrin Xl] 300 mg PO DAILY 12/29/18 [History] Dexlansoprazole [Dexilant] 60 mg PO DAILY 12/29/18 [History] Fluticasone/Vilanterol [Breo Ellipta 200-25 Mcg INH] 1 each IH DAILY PRN 12/29/18 [History] Ibuprofen [Ibu-200] 200 mg PO Q4H PRN 12/29/18 [History] Lidocaine/Prilocaine [Emla] 1 appl TP AD PRN 12/29/18 [History] Megestrol Acetate [Megace] 40 mg PO BID 12/29/18 [History] Polyethylene Glycol 3350 [MiraLAX] 17 gm PO DAILY PRN 12/29/18 [History] Demeclocycline [Declomycin] 600 mg PO BID #60 tablet 01/02/19 [Rx] Sodium Chloride [Sodium Chloride Tab] 1 gm PO TID #90 tablet 01/02/19 [Rx] Sucralfate [Carafate] 1 gm PO QIDAC #30 udc 01/02/19 [Rx] Allergies/Adverse Reactions: Allergy/AdvReac Type Severity Reaction Status Date / Time baclofen AdvReac See Verified 12/18/18 08:56 Comments morphine AdvReac Itching Verified 12/18/18 08:56 oxybutynin [From Ditropan] AdvReac Confusion Verified 12/29/18 14:53 Date of admission: 12/29/18 08:04 Primary care physician: Talon Sommer Consults: 12/29/18 15:10 Consult to Nephrology [CONS] Routine Consulting Provider: [facility] Claudine/LALO/HUBERT/JED Reason for Consult: hyponatremia Call Completed: Yes 12/30/18 12:22 Consult to Oncology [CONS] Routine Consulting Provider: [facility] [place] Reason for Consult: lung ca with metastatic disease Call Completed: No 12/31/18 12:42 Consult to Physical Therapy [CONS] Routine Comment: Evaluate, develop and implement POC Reason for Consult: weakness Does patient have active BEDREST order?: No Is patient medically & hemodynamically stable?: Yes 01/01/19 17:34 Consult to Nutrition [CONS] Routine Comment: Pt is on Ensure TID at home but on fluid restricti Consulting Provider: NUTRITION Reason for Dietary Consult: PO Supplementation Discharging clinician: Amy Ozuna Anticipated date of discharge: 01/02/19 - Constitutional Vitals: Temp Pulse Resp BP Pulse Ox 98.5 F 109 14 114/75 95 01/02/19 06:10 01/02/19 06:10 01/02/19 06:10 01/02/19 06:10 01/02/19 06:10 Exam: General: No acute distress, AAO x 3, frail appearing elderly female HEENT: EOMI, NC/AT, no scleral icterus, poor oral hygiene Respiratory: Clear to auscultate bilaterally, no wheezing, no rales Cardiovascular: Regular, Rate, Rhythm, No murmurs, No JVD GI: Soft, Non tender, non distended, normal bowel sounds Ext: No edema, no tenderness, positive pulses Skin: Chronic venous stasis in bilateral LE Neuro: AAO x 3, no focal deficits - Patient Status Disposition: Home Health Service Functional capacity at discharge: uses cane/walker - Ambulatory Orders Ambulatory Orders: Basic Metabolic Panel [CHEM] Time Frame: 4 Days, Facility: [facility], Location: Lab Magnesium [CHEM] Time Frame: 4 Days, Facility: [facility], Location: Lab - Discharge Instructions Follow Up With: Talon Sommer MD [Primary Care Provider] - Additional Instructions: 1. Please follow up with your PCP, oncologist, and aerospace medicine physician within five days after your discharge from the hospital. 2. Your home dose of demeclocycline and NaCl tabs has been increased. Please take these medications as prescribed. 3. Carafate has been added to your home medications 4. Resume all your home medications as prescribed 5. Please obtain the prescribed lab work prior to your follow up with your aerospace medicine physician. - Diet and Activity Activity: as per physical therapy Diet: other (fluid restriction diet (1.5L/day))
[2019-01-02 14:09] VITALS: BP 121/64
== END 2019-01-02 15:57 | disposition home health service (06) | DRG 644 ==
LOC: 3ANU 22:20 → EMEROOARM 22:20 → 3ANU 12-29 04:18 → SUATTDRO 12-29 08:04 → 3ANU 12-30 21:30
PROVIDERS: ADMIT Pediatrics; ATTEND Internal Medicine

== ENCOUNTER 2020-03-17 14:17 | Inpatient (IN) ==
[2020-03-17] MEDS ORDERED: Isovue-370 500 ML BOTTLE IVP ONE (14:37)
[2020-03-17] MEDS ORDERED: predniSONE 20 MG TABLET PO ONE (14:37)
[2020-03-17] MEDS ORDERED: Ipratropium/Albuterol Neb 3 ML IH ONE (14:37)
[2020-03-17] MEDS ORDERED: 0.9 % Sodium Chloride 500 ML IVC ONE (14:47)
[2020-03-17 16:37] LABS: Basophils % 0.2 %; Eosinophils % 0.1 %; Hematocrit 40.3 % (35.3-44.9); Hemoglobin 13.2 g/dL (11.5-15.4); Immature Granulocytes % 0.5 % (0-4); Lymphocytes # 0.4 K/mcL (0.6-4.6); Lymphocytes % 4.1 %; Mean Corpuscular HGB Conc 32.8 g/dL (31.6-35.5); Mean Corpuscular Hemoglobin 30.6 pg (28.0-33.3); Mean Corpuscular Volume 93.3 fL (83.0-100.0); Mean Platelet Volume 8.1 fL (9.4-12.4); Monocytes # 0.7 K/mcL (0.0-1.3); Monocytes % 7.1 %; Platelet Count 510 K/mcL (140-400); Red Blood Count 4.32 M/mcL (3.82-4.97); Red Cell Distribution Width 12.8 % (11.5-14.5); White Blood Count 10.2 K/mcL (4.3-11.1)
[2020-03-17 16:42] LABS: VBG HCO3 25 mEq/L (21-27); VBG PCO2 41 mmHg (41-51); VBG PO2 69 mmHg (25-50)
[2020-03-17 17:00] LABS: Troponin I < 0.03 ng/mL (< 0.04)
[2020-03-17 17:05] LABS: BUN/Creatinine Ratio 12 (6-26); Blood Urea Nitrogen 5 mg/dL (8-23); Calcium 9.1 mg/dL (8.6-10.3); Carbon Dioxide 23 mEq/L (23-29); Chloride 89 mEq/L (98-107); Glucose 138 mg/dL (70-105); Osmolality,Calculated 261 (280-300); Potassium 3.6 mEq/L (3.5-5.1); Sodium 126 mEq/L (136-145); eGFR For African Americans > 60 (> 60); eGFR For Non-African Americans > 60 (> 60)
[2020-03-17] MEDS ORDERED: *HR* LORazepam 2 MG/ML VIAL IVP ONE (17:14)
[2020-03-17] MEDS ORDERED: *HR* LORazepam 2 MG/ML VIAL IVP PRN ×2 (17:15)
[2020-03-17] MEDS ORDERED: cefTRIAXone 1,000 MG in Water for inj. (sterile) 10 ML IVP ONE (20:05)
[2020-03-17] MEDS ORDERED: Azithromycin 500 MG in 0.9 % Sodium Chloride 250 ML IVPB ONE (20:05)
[2020-03-18] MEDS ORDERED: Naloxone 0.4 MG/ML INJ IVP PRN (01:53)
[2020-03-18 03:13] LABS: Hematocrit 37.6 % (35.3-44.9); Hemoglobin 12.1 g/dL (11.5-15.4); Mean Corpuscular HGB Conc 32.2 g/dL (31.6-35.5); Mean Corpuscular Hemoglobin 30.3 pg (28.0-33.3); Mean Platelet Volume 8.3 fL (9.4-12.4); Platelet Count 469 K/mcL (140-400); Red Cell Distribution Width 12.7 % (11.5-14.5)
[2020-03-18 03:16] LABS: INR 1.2; Prothrombin Time 13.4 Seconds (9.4-12.1)
[2020-03-18 03:18] LABS: Activated Partial Thrombo Time 33.3 Seconds (26.0-36.0)
[2020-03-18 03:32] LABS: Alanine Aminotransferase 6 Units/L (7-52); Albumin 3.4 g/dL (3.5-5.7); Albumin/Globulin Ratio 0.9 (1.1-2.2); Alkaline Phosphatase 123 Units/L (34-104); Aspartate Amino Transferase 16 Units/L (13-39); BUN/Creatinine Ratio 12 (6-26); Bilirubin,Total 0.4 mg/dL (0.3-1.0); Blood Urea Nitrogen 5 mg/dL (8-23); Calcium 9.2 mg/dL (8.6-10.3); Carbon Dioxide 27 mEq/L (23-29); Chloride 89 mEq/L (98-107); Globulin 3.6 g/dL (2.4-3.5); Glucose 159 mg/dL (70-105); Magnesium 1.8 mg/dL (1.6-2.6); Osmolality,Calculated 265 (280-300); Phosphorous 3.6 mg/dL (2.7-4.5); Sodium 127 mEq/L (136-145); eGFR For African Americans > 60 (> 60); eGFR For Non-African Americans > 60 (> 60)
[2020-03-18] MEDS: Thiamine (B-1) 100 MG, Folic Acid 1 MG, MVI, adult with vitamin K 10 ML in 0.9 % Sodi... IVPB SCH ×2 (03:41→17:21)
[2020-03-18] MEDS ORDERED: Ipratropium/Albuterol Neb 3 ML IH SCH (06:30)
[2020-03-18] MEDS ORDERED: predniSONE 20 MG TABLET PO SCH (09:00)
[2020-03-18] MEDS: Nicotine 21 MG PATCH.TD24 TD SCH (09:04)
[2020-03-18] MEDS: cefTRIAXone 1,000 MG in Water for inj. (sterile) 10 ML IVP SCH (09:05)
[2020-03-18] MEDS: Azithromycin 500 MG in 0.9 % Sodium Chloride 250 ML IVPB SCH (09:06)
[2020-03-18] MEDS: IPRATROPIUM/ALBUTEROL SULFATE 120 PUFF INHALER IH SCH ×4 (09:35→22:47)
[2020-03-18] MEDS ORDERED: Acetaminophen 325 MG TABLET PO PRN (13:25)
[2020-03-18] MEDS ORDERED: *HR* OxyCODONE/APAP 5/325 TABLET PO PRN (13:25)
[2020-03-18] MEDS ORDERED: diazePAM 5 MG TABLET PO PRN (13:25)
[2020-03-18] MEDS: 0.9 % Sodium Chloride 1,000 ML IVC SCH (15:13)
[2020-03-18] MEDS: *HR* Heparin 5,000 UNIT/ML VIAL SQ SCH (17:20)
[2020-03-18] MEDS ORDERED: MethylPREDNISolone 40 MG/ML VIAL IVP SCH (18:00)
[2020-03-18] MEDS: MethylPREDNISolone 40 MG/ML VIAL IVP SCH (22:41)
[2020-03-19] MEDS: 0.9 % Sodium Chloride 1,000 ML IVC SCH (02:30)
[2020-03-19 02:40] LABS: Hematocrit 34.7 % (35.3-44.9); Hemoglobin 11.1 g/dL (11.5-15.4); Immature Granulocytes % 0.5 % (0-4); Lymphocytes # 0.2 K/mcL (0.6-4.6); Lymphocytes % 1.5 %; Mean Corpuscular Hemoglobin 30.6 pg (28.0-33.3); Mean Corpuscular Volume 95.6 fL (83.0-100.0); Mean Platelet Volume 8.2 fL (9.4-12.4); Monocytes # 0.2 K/mcL (0.0-1.3); Monocytes % 1.5 %; Neutrophils # 10.3 K/mcL (1.6-8.9); Platelet Count 430 K/mcL (140-400); Red Blood Count 3.63 M/mcL (3.82-4.97); Red Cell Distribution Width 12.8 % (11.5-14.5); Segmented Neutrophils % 96.5 %; White Blood Count 10.7 K/mcL (4.3-11.1)
[2020-03-19 03:01] LABS: BUN/Creatinine Ratio 25 (6-26); Blood Urea Nitrogen 9 mg/dL (8-23); Calcium 8.7 mg/dL (8.6-10.3); Carbon Dioxide 27 mEq/L (23-29); Chloride 96 mEq/L (98-107); Glucose 142 mg/dL (70-105); Osmolality,Calculated 273 (280-300); Potassium 3.8 mEq/L (3.5-5.1); Sodium 131 mEq/L (136-145); eGFR For African Americans > 60 (> 60); eGFR For Non-African Americans > 60 (> 60)
[2020-03-19] MEDS: Albuterol 2.5 MG/3 ML NEBULIZER IH PRN ×3 (04:26→16:22)
[2020-03-19] MEDS: IPRATROPIUM/ALBUTEROL SULFATE 120 PUFF INHALER IH SCH ×2 (04:28→12:10)
[2020-03-19] MEDS: Azithromycin 500 MG in 0.9 % Sodium Chloride 250 ML IVPB SCH (06:06)
[2020-03-19] MEDS: *HR* Heparin 5,000 UNIT/ML VIAL SQ SCH (06:06)
[2020-03-19] MEDS ORDERED: *HR* Propofol 200 MG/20 ML VIAL IVP ONE ×2 (07:37→09:34)
[2020-03-19] MEDS ORDERED: Lidocaine -MPF 2% 2 ML VIAL ONE (07:37)
[2020-03-19] MEDS ORDERED: *HR* Succinylcholine 200 MG/10 ML VIAL IVP ONE (07:37)
[2020-03-19] MEDS ORDERED: Lidocaine -MPF 4% 5 ML AMPUL ONE (07:37)
[2020-03-19] MEDS ORDERED: Dexamethasone 4 MG/ML VIAL ONE (07:37)
[2020-03-19] MEDS ORDERED: Ondansetron 4 MG/2 ML VIAL ONE (07:37)
[2020-03-19] MEDS ORDERED: *HR* PHENYLEPHRINE 1,000 MCG/10 ML SYRINGE IVP ONE (07:41)
[2020-03-19] MEDS ORDERED: *HR* LORazepam 2 MG/ML VIAL ONE (08:21)
[2020-03-19] MEDS ORDERED: 0.9 % Sodium Chloride 1,000 ML IVC SCH (08:45)
[2020-03-19] MEDS ORDERED: Piperacillin/Tazobactam 3.375 GM in 0.9 % Sodium Chloride Mini Bag 100 ML IVPB SCH (10:00)
[2020-03-19 10:01] LABS: Source of Body Fluid rul bronch washing
[2020-03-19] MEDS: MethylPREDNISolone 40 MG/ML VIAL IVP SCH (10:58)
[2020-03-19] MEDS: Nicotine 21 MG PATCH.TD24 TD SCH (11:00)
[2020-03-19] MEDS ORDERED: Glycopyrrolate 0.2 MG/ML VIAL IVP PRN (11:38)
[2020-03-19] MEDS: *HR* LORazepam 2 MG/ML VIAL IVP PRN (11:41)
[2020-03-19 12:15] LABS: Appearance of Body Fluid Hazy (Clear); Volume of Body Fluid 15 mL
[2020-03-19] MEDS: cefTRIAXone 1,000 MG in Water for inj. (sterile) 10 ML IVP SCH (13:44)
[2020-03-19] MEDS: Haloperidol Lactate 5 MG/ML VIAL IVP SCH ×2 (13:58→18:07)
[2020-03-19] MEDS: *HR* HYDROmorphone (PF) 1 MG/ML SYRINGE IVP PRN ×2 (16:16→21:34)
[2020-03-20] MEDS: Haloperidol Lactate 5 MG/ML VIAL IVP SCH ×4 (00:11→17:45)
[2020-03-20] MEDS: *HR* LORazepam 2 MG/ML VIAL IVP PRN ×2 (07:47→14:19)
[2020-03-20] MEDS ORDERED: Nicotine 21 MG PATCH.TD24 TD SCH (09:00)
[2020-03-20] MEDS: Atropine Sulfate 1% 40 DROP/2 ML BOTTLE SL PRN ×2 (09:16→17:59)
[2020-03-20] MEDS: Albuterol 2.5 MG/3 ML NEBULIZER IH PRN (18:28)
[2020-03-20] MEDS: *HR* HYDROmorphone (PF) 1 MG/ML SYRINGE IVP PRN (20:54)
[2020-03-21 09:48] VITALS: BP 110/74
[2020-03-22 05:41] LABS: Influenza A PCR Body Fluid NOT DETECTED; Influenza B PCR Body Fluid NOT DETECTED
[2020-03-22 10:39] LABS: RSV PCR Body Fluid NOT DETECTED; RVP Body Fluid Source NOT PROVIDED
== END 2020-03-20 22:14 | disposition expired | DRG 871 ==
LOC: EMEROOARM 14:17 → 2NENU 14:17 → SUATTDRO 03-18 13:15 → 2ANU 03-18 21:52 → 2NNU 03-19 10:40 → 2ANU 03-19 13:57
PROVIDERS: ADMIT Internal Medicine; ATTEND Internal Medicine